=== PATIENT | male | born 1960 | race Caucasian/White ===

== ENCOUNTER 2019-01-17 15:49 | Inpatient (IN) | payer OTHER ==
[2019-01-17 16:54] LABS: #Eosinphils 0.4 thou/uL (0.0-0.7); #Lymphocytes 2.8 thou/uL (1.20-3.40); #Monocytes 1.3 thou/uL (0.11-0.59); #Neutrophils 7.6 thou/uL (1.40-6.50); %Basophils 0.4 % (0.0-1.0); %Eosinophils 3.2 % (0.0-10.0); %Lymphocytes 22.8 % (21.0-51.0); %Monocytes 10.8 % (0.0-10.0); %Neutrophils 62.8 % (42.0-75.0); Hemoglobin 13.1 g/dL (14.0-18.0); Mean Corpuscular HGB CONC 33.9 g/dL (32.0-36.0); Mean Corpuscular Hemoglobin 31.7 pg (27.0-31.0); Mean Corpuscular Volume 93.6 fL (78.0-98.0); Platelet Count 325 thou/uL (130-400); RBC Distribution Width 11.3 % (11.5-14.5); Red Blood Cell (RBC) Count 4.14 mill/uL (4.70-6.10); White Blood Cell (WBC) Count 12.1 thou/uL (4.8-10.8)
--- NOTE | 2019-01-17 17:15 | RAD ---
Exam: XR Foot Rt 3 View STANDARD HISTORY: Soreness on bottom of right foot. History of prior bone infection. COMPARISON: None FINDINGS: There is a linear metallic foreign body seen in the plantar subcutaneous soft tissues base of the rig ht great toe laterally with a curvilinear metallic foreign body also seen in the plantar subcutaneous soft tissues just medial to the level of the third metatarsal head. No acute fracture, dislocation, or other acute osseous abnormality is identified. A plantar calcaneal enthesophyte is identified. IMPRESSION: 1. Linear metallic foreign bodies in the subcutaneous soft tissues at the plantar aspect base of the great toe as well as plantar aspect of the forefoot at the level of the third and fourth metatarsal heads. 2. No acute osseous abnormality.
[2019-01-17 17:20] LABS: ALT (SGPT) 17 U/L (8-55); AST (SGOT) 26 U/L (5-34); Albumin 3.8 g/dL (3.5-5.0); Alkaline Phosphatase 80 U/L (40-110); Anion Gap 10 mmol/L (10-20); BUN (Urea Nitrogen) 8 mg/dL (8.4-25.7); Bilirubin, Total 0.6 mg/dL (0.2-1.2); Calc. Creatinine Clearance 0 mL/min (70-130); Calcium 9.1 mg/dL (7.8-10.44); Carbon Dioxide 30 mmol/L (22-29); Chloride 98 mmol/L (98-107); Estimated GFR-MDRD Greater than 90; Globulin 3.4 g/dL (2.4-3.5); Glucose 158 mg/dL (70-105); Potassium 4.1 mmol/L (3.5-5.1); Protein, Total 7.2 g/dL (6.0-8.3); Sodium 134 mmol/L (136-145)
[2019-01-17] MEDS ORDERED: Piperacillin/Tazobactam 4.5 GM VIAL ONE ×2 (17:55→17:57)
[2019-01-17] MEDS ORDERED: Vancomycin 1.5 GRAM/300 ML BAG 1.5 GM in Premix Bag 1 BAG IVPB ONE (18:15)
[2019-01-17] MEDS ORDERED: Acetaminophen 325 MG TAB PO PRN (19:26)
[2019-01-17] MEDS ORDERED: Dextrose 50% Abboject 50 ML SYRINGE SLOW IVP PRN (19:49)
[2019-01-17] MEDS ORDERED: HumaLOG 300 UNITS/3 ML VIAL SC PRN (19:49)
[2019-01-17] MEDS ORDERED: Dextrose 5% in Water 1,000 ML IV PRN (19:49)
--- NOTE | 2019-01-17 22:01 | HP ---
CHIEF COMPLAINT: Right foot ulcer. HISTORY OF PRESENT ILLNESS: This patient is a 58-year-old male, who says he has psych problems and takes psych medications. States that he at some point recently noticed that he was having some drainage on his sock on his right foot. He then noticed that there was large lesion of open area on the dorsum of the plantar surface of the right great toe. He subsequently noticed some erythema extending from the toe up the foot to the calf area. He says he cannot recall when he noticed any of this and essentially blames it on his psych medications. He says he only had one day of fever that was over a week ago, but none since he does not have significant pain associated with this area. He does not recall any specific injury or stepping on any foreign bodies. REVIEW OF SYSTEMS: All systems reviewed. All pertinent positives and negatives noted in history of present illness. PAST MEDICAL HISTORY: Had surgery on his left great toe 4 times, started with removal of a ganglion cyst, subsequently infections and complications. No other surgeries. He has hypertension, diabetes mellitus, and apparently bipolar disorder. He was admitted here previously in September of 2016, with suicidal ideations. He was homeless at that time and he was discharged to a psychiatric facility. His primary care provider is Zainab Pacheco at [facility]. FAMILY HISTORY: Has a brother with prostate cancer. Father of [place]. He is unsure of his mother's medical history. SOCIAL HISTORY: The patient smokes a pack of cigarettes per day. Denies alcohol. Previously said he did consume moderate amounts of beer. He denies drugs. He is single. He lives alone in a 5th wheel trailer. CURRENT MEDICATIONS: Still working on getting the complete list, but it appears to include: 1. Risperdal 3 mg at bedtime. 2. Metformin 500 b.i.d. 3. Glucotrol 5 b.i.d. 4. Klonopin 0.5 at bedtime. 5. Effexor XR 150 daily. 6. Tramadol 50 q.8 hours p.r.n. 7. Metoprolol 50 mg b.i.d. 8. Fenofibrate 160 daily. 9. Benztropine 5 mg p.o. at bedtime. Again, this is very preliminary and not yet confirmed, although it appears that these have all been medications he has previously filled but not recently. PHYSICAL EXAMINATION: VITAL SIGNS: Blood pressure 137/79, pulse 74, respirations 15, temperature is 98.4, O2 sats 98%. GENERAL APPEARANCE: Age-appropriate male, in no distress. Awake, alert, oriented, pleasant, and cooperative. HEENT: PERRL. He has no OP lesions. Appears to be edentulous. NECK: Supple and symmetric. HEART: Regular rate and rhythm without murmurs, gallops, or rubs. He does appear to have small incisional scar in the sternal notch area, which is old. LUNGS: Diminished, but clear bilaterally with no wheezes or rales. ABDOMEN: Soft, nontender, and nondistended. Positive bowel sounds. No masses. No organomegaly. EXTREMITIES: The left lower extremity great toe appears to be shortened. It is mildly erythematous. The right foot has significant erythema encompassing the right great toe with edema. There is a 2.5 cm area of denuded skin and ulceration extending to the base of the foot. There is erythema extending onto the foot up to the mid calf with some generalized edema on this area. It is modestly tender to palpation. PSYCH: Normal affect and behavior. NEURO: The patient appears to have fairly normal sensation in lower extremities and normal spontaneous movement of all extremities. Cranial nerves are intact. LABORATORY DATA: White count 12.1, hemoglobin 13.1, platelets 325. Sodium 134, potassium 4.1, chloride 98, CO2 is 30, BUN 8, creatinine 0.76, glucose 158, lactic acid 1.5, calcium 9.1. LFTs normal. Foot x-ray shows linear metallic foreign bodies in the subcutaneous soft tissue at the plantar aspect and base of the great toe, as well as plantar aspect of the forefoot at the level of the third and fourth metatarsal heads. There is no acute osseous abnormality. IMPRESSION AND PLAN: 1. Infected diabetic foot ulcer, right great toe with foreign body consistent with very small piece of small gauge wire. The patient has no known history exposure to this certainly concerning that this is not going to get better unless that area is explored and potentially the metallic piece removed. He will be admitted and started on IV antibiotics, and we will consult Podiatry. 2. Diabetes mellitus. Accu-Cheks sliding scale, which I resume his home medications once those can be fully elucidated. 3. History of bipolar disorder. We will continue with the risperidone at bedtime and benztropine at bedtime and try to be more definitive with his home medications by the morning. Anticipate we can get a med list from [facility]. 4. History of being on metoprolol, likely for hypertension which the patient reports. We will continue with that. Job ID: [id number]
[2019-01-17] MEDS: traMADol HCl 50 MG TAB PO PRN (22:03)
[2019-01-17] MEDS: risperiDONE 1 MG TAB PO SCH (22:03)
[2019-01-17] MEDS: Nicotine 14 MG PATCH TD SCH (22:04)
[2019-01-17 23:24] VITALS: BMI 35.7
[2019-01-18] MEDS: Piperacillin/Tazobactam 3.375 GM in Sodium Chloride 0.9% 100 ML IVPB SCH ×5 (00:04→23:47)
[2019-01-18 05:44] LABS: #Basophils 0.1 thou/uL (0.0-0.2); #Eosinphils 0.4 thou/uL (0.0-0.7); #Lymphocytes 2.3 thou/uL (1.20-3.40); #Monocytes 1.1 thou/uL (0.11-0.59); #Neutrophils 3.9 thou/uL (1.40-6.50); %Basophils 0.9 % (0.0-1.0); %Eosinophils 5.2 % (0.0-10.0); %Lymphocytes 29.6 % (21.0-51.0); %Neutrophils 50.3 % (42.0-75.0); Hemoglobin 12.9 g/dL (14.0-18.0); Mean Corpuscular HGB CONC 33.4 g/dL (32.0-36.0); Mean Corpuscular Hemoglobin 31.4 pg (27.0-31.0); Mean Corpuscular Volume 93.9 fL (78.0-98.0); Mean Platelet Volume 7.2 fL (7.4-10.4); Platelet Count 296 thou/uL (130-400); RBC Distribution Width 11.5 % (11.5-14.5); Red Blood Cell (RBC) Count 4.12 mill/uL (4.70-6.10); White Blood Cell (WBC) Count 7.7 thou/uL (4.8-10.8)
[2019-01-18 06:11] LABS: Anion Gap 9 mmol/L (10-20); BUN (Urea Nitrogen) 6 mg/dL (8.4-25.7); Calc. Creatinine Clearance 183 mL/min (70-130); Calcium 8.9 mg/dL (7.8-10.44); Carbon Dioxide 28 mmol/L (22-29); Chloride 106 mmol/L (98-107); Estimated GFR-MDRD Greater than 90; Glucose 123 mg/dL (70-105); Potassium 4.2 mmol/L (3.5-5.1); Sodium 139 mmol/L (136-145)
[2019-01-18] MEDS: traMADol HCl 50 MG TAB PO PRN (08:30)
[2019-01-18] MEDS: metFORMIN 500 MG TAB PO SCH ×2 (08:31→17:28)
[2019-01-18] MEDS: Venlafaxine HCl XR 150 MG CAP PO SCH (08:31)
[2019-01-18] MEDS: Metoprolol Tartrate 50 MG TAB PO SCH ×2 (08:31→20:45)
[2019-01-18] MEDS: clonazePAM 0.5 MG TAB PO SCH (08:31)
[2019-01-18] MEDS: glipiZIDE 5 MG TAB PO SCH ×2 (08:31→17:28)
[2019-01-18] MEDS ORDERED: FLU VACC QS2019-20(6MOS UP)/PF 60 MCG/0.5 ML SYRINGE IM ONE (09:00)
[2019-01-18] MEDS: risperiDONE 1 MG TAB PO SCH (20:45)
[2019-01-18] MEDS: Benztropine 1 MG TAB PO SCH (20:45)
[2019-01-18] MEDS: Nicotine 14 MG PATCH TD SCH (20:45)
--- NOTE | 2019-01-18 21:21 | PDOC.HOSPP ---
- Subjective Encounter Date: 01/18/19 Encounter Time: 07:15 Subjective: no pain in his toe ulcer site is amb in room - Objective Vital Signs & Weight: Vital Signs (12 hours) Temp Pulse Resp BP Pulse Ox 01/18/19 19:52 98.2 F 69 19 130/78 93 L 01/18/19 17:14 98.4 F 68 16 121/80 92 L 01/18/19 12:25 98.1 F 68 20 123/79 95 Weight Weight 242 lb Result Diagrams: 01/18/19 05:07 01/18/19 05:07 Additional Labs: Accuchecks 01/18/19 01/18/19 01/18/19 19:58 16:57 11:40 POC Glucose 139 H 130 H 125 H 01/18/19 01/17/19 04:54 21:16 POC Glucose 128 H 107 Hospitalist ROS - Medication Medications: Active Medications Generic Name Dose Route Start Last Admin Trade Name Freq PRN Reason Stop Dose Admin Benztropine Mesylate 0.5 mg 01/18/19 21:00 01/18/19 20:45 Cogentin PO 0.5 mg HS PATITO Administration Clonazepam 0.5 mg 01/18/19 09:00 01/18/19 08:31 Klonopin PO 0.5 mg DAILY PATITO Administration Glipizide 5 mg 01/18/19 07:30 01/18/19 17:28 Glucotrol PO 5 mg BID-AC PATITO Administration Piperacillin Sod/Tazobactam 100 mls @ 200 mls/hr 01/17/19 23:59 01/18/19 17: 28 Sod 3.375 gm/ Sodium Chloride IVPB 100 mls Q6HR PATITO Administration Metformin HCl 500 mg 01/18/19 08:00 01/18/19 17:28 Glucophage PO 500 mg BID-WM PATITO Administration Metoprolol Tartrate 50 mg 01/18/19 09:00 01/18/19 20:45 Lopressor PO 50 mg BID PATITO Administration Nicotine 14 mg 01/17/19 21:00 01/18/19 20:45 Nicoderm Patch TD Not Given Q24HR PATITO Risperidone 2 mg 01/17/19 21:00 01/18/19 20:45 Risperidone PO 2 mg HS PATITO Administration Tramadol HCl 50 mg 01/17/19 21:50 01/18/19 08:30 Ultram PO 50 mg Q8H PRN Administration Pain Venlafaxine HCl 150 mg 01/18/19 09:00 01/18/19 08:31 Effexor Xr PO 150 mg DAILY PATITO Administration - Exam General Appearance: awake alert Eye: PERRL, anicteric sclera ENT: no oropharyngeal lesions, dry oral mucosa Neck: supple, no JVD Heart: RRR, no murmur Respiratory: no wheezes, no rales Gastrointestinal: soft, non-tender, non-distended, normal bowel sounds Extremities - other findings: right gr toe ulcer on plantar aspect at MTP joint , edema of foot/leg Neurological: cranial nerve grossly intact, no focal deficits Psychiatric: normal affect, A&O x 3 Hosp A/P (1) Cellulitis of right leg Code(s): L03.115 - CELLULITIS OF RIGHT LOWER LIMB Status: Acute (2) DM type 2 (diabetes mellitus, type 2) Status: Chronic Qualifiers: Diabetes mellitus salvage determiner insulin use: without salvage determiner use (3) Ulcer of right great toe due to diabetes mellitus Code(s): E11.621 - TYPE 2 DIABETES MELLITUS WITH FOOT ULCER; L97.519 - NON-PRS CHRONIC ULCER OTH PRT RIGHT FOOT W UNSP SEVERITY Status: Acute (4) Obesity (BMI 30-39.9) Code(s): E66.9 - OBESITY, UNSPECIFIED Status: Chronic (5) Anxiety and depression Code(s): F41.8 - OTHER SPECIFIED ANXIETY DISORDERS Status: Chronic (6) HTN (hypertension) Code(s): I10 - ESSENTIAL (PRIMARY) HYPERTENSION Status: Chronic Qualifiers: Hypertension type: essential hypertension Qualified Code(s): I10 - Essential (primary) hypertension - Plan is on vanc and zosyn, for debridement in am by Podiatry continue metformin, glipizide, lopressor, cogentin, klonopin and risperdal hemostable to amb as tolerated, to keep right LE elevated to reduce edema
--- NOTE | 2019-01-18 23:57 | HP ---
REASON FOR CONSULTATION: Right foot ulceration. HISTORY OF PRESENT ILLNESS: A 58-year-old male who was admitted to the hospital with cellulitis and wound to the right foot. He states that he thinks that the wound has been there for about a month to month and a half. He says he noticed pain about a month ago, went to his primary care doctor just a few days ago and he said it was the worst it had been at times and he had increased redness and swelling and pain to the right great toe. He was admitted to the hospital for this infection. He has been admitted to the hospital, has been getting IV antibiotics. He says the wound has improved, but on admission, there was x-rays taken, which showed a small metallic object in the in the great toe, which does relate to the site of the ulceration. Patient denies any nausea, vomiting, fevers, or chills at this time. REVIEW OF SYSTEMS: All systems reviewed and all were negative except for what was noted as positive in the history of present illness. PAST MEDICAL HISTORY: 1. Hypertension. 2. Diabetes. 3. Bipolar disorder. PAST SURGICAL HISTORY: Includes 4 surgeries on his left great toe, which included a removal of a ganglion cyst and then subsequent infection and complications. MEDICATIONS: Allergies. FAMILY HISTORY: Reviewed SOCIAL HISTORY: Reviewed from the admission H and P and deemed accurate with review with the patient. PHYSICAL EXAMINATION: EXTREMITIES: For the lower extremity exam, vascular, dorsalis pedis, posterior tibial pulses palpable to the right lower extremity. Capillary refill time is immediate to the distal aspect of the toes. There is diffuse nonpitting edema to the right lower extremity. NEUROLOGIC: Light touch and protective threshold is diminished to the right lower extremity. DERMATOLOGICAL: There is an ulceration full thickness to the plantar sulcus of the right hallux. This measures 1.5 cm long, 3 cm in width, which continues onto the lateral aspect of the toe. No tunneling or probing to bone. The right hallux is erythematous just proximally to the 1st metatarsophalangeal joint. No fluctuant areas noted within the surrounding soft tissues to indicate abscess. IMAGING: Radiographic exam, x-rays were reviewed which do show a small metallic object just plantar and lateral to the proximal phalanx of the right hallux. This is in close proximity to the overlying soft tissue deficit. No cortical erosions or irregularity to indicate osteomyelitis. ASSESSMENT: 1. Non-pressure chronic ulceration to the right great toe with fat layer exposed. 2. Retained foreign body. 3. Cellulitis. 4. Diabetes with peripheral neuropathy. PLAN: 1. Discussed the patient's condition and treatment options. The foreign body may actually be an incidental finding as I do not see any wound tracts, but because of the close proximity, I am recommending that we remove that small foreign body from the area to help promote the healing of the area. 2. He is to continue with his IV antibiotics and once he becomes stable after surgery, can be discharged on oral antibiotics. 3. I have him scheduled to go to the operating room tomorrow morning. I will make him n.p.o. after midnight and he will be consented for removal of foreign body to the right great toe. Thank you for medical management by the in-house team and for the consultation. Job ID: [id number]
[2019-01-19] MEDS: Metoprolol Tartrate 50 MG TAB PO SCH ×2 (05:16→21:06)
[2019-01-19] MEDS: clonazePAM 0.5 MG TAB PO SCH ×2 (05:16→18:32)
[2019-01-19] MEDS: Piperacillin/Tazobactam 3.375 GM in Sodium Chloride 0.9% 100 ML IVPB SCH ×3 (05:16→17:14)
[2019-01-19] MEDS ORDERED: Fentanyl 100 MCG/2 ML VIAL ONE (06:43)
[2019-01-19] MEDS ORDERED: Neomycin-Polymyxin 1 ML AMP ONE (06:45)
[2019-01-19] MEDS ORDERED: Bupivacaine PF 0.5% 30 ML VIAL ONE (06:45)
[2019-01-19] MEDS: metFORMIN 500 MG TAB PO SCH ×2 (09:18→17:07)
[2019-01-19] MEDS: Venlafaxine HCl XR 150 MG CAP PO SCH (09:18)
[2019-01-19] MEDS: glipiZIDE 5 MG TAB PO SCH ×2 (09:18→17:07)
[2019-01-19] MEDS ORDERED: Glycopyrrolate 0.2 MG/ML 5 ML SYRINGE ONE (09:58)
[2019-01-19] MEDS ORDERED: Ondansetron PF 4 MG/2 ML Vial ONE (09:58)
[2019-01-19] MEDS ORDERED: PROPOFOL 200 MG/20 ML VIAL ONE (09:58)
[2019-01-19] MEDS ORDERED: ePHEDrine/0.9% NaCl/PF SYRINGE 50 mg/10 ml ONE (09:58)
[2019-01-19] MEDS ORDERED: Lidocaine 1% PF 5 ML VIAL ONE (09:58)
--- NOTE | 2019-01-19 10:06 | RAD ---
RIGHT FOOT 3 VIEWS: INDICATION: Foreign body removal. COMPARISON: Prior exam dated 01/17/2019. IMPRESSION: The small foreign body seen just lateral to the great toe proximal phalanx is no longer demonstrated. The small foreign body seen within the plantar soft tissues subjacent to the forefoot is not defini tely seen. Fluoroscopic time was 9.6 seconds. Total exposure is 0.21 mGy. IMPRESSION: Definite interval removal of foreign body seen adjacent to the great toe proximal phalanx. The small radiopaque foreign body on the plantar aspect of the forefoot is difficult to see if it was removed. Repeat standard radiograph recommended. POS: [facility]
[2019-01-19] MEDS: traMADol HCl 50 MG TAB PO PRN ×2 (11:56→21:10)
--- NOTE | 2019-01-19 13:17 | PDOC.HOSPP ---
- Subjective Encounter Date: 01/19/19 Encounter Time: 09:15 Subjective: feels better, has not ambulated yet no pain in his foot - Objective Vital Signs & Weight: Vital Signs (12 hours) Temp Pulse Resp BP Pulse Ox 01/19/19 12:17 98.0 F 56 L 20 126/79 91 L 01/19/19 05:00 98.2 F 69 18 127/78 95 Weight Weight 242 lb I&O: 01/18/19 01/19/19 01/20/19 06:59 06:59 06:59 Intake Total 920 Balance 920 Result Diagrams: 01/18/19 05:07 01/18/19 05:07 Additional Labs: Accuchecks 01/19/19 01/19/19 01/18/19 11:45 05:05 19:58 POC Glucose 152 H 130 H 139 H 01/18/19 01/18/19 16:57 11:40 POC Glucose 130 H 125 H Hospitalist ROS - Medication Medications: Active Medications Generic Name Dose Route Start Last Admin Trade Name Darionq PRN Reason Stop Dose Admin Benztropine Mesylate 0.5 mg 01/18/19 21:00 01/18/19 20:45 Cogentin PO 0.5 mg HS PATITO Administration Clonazepam 0.5 mg 01/18/19 09:00 01/19/19 05:16 Klonopin PO 0.5 mg DAILY PATITO Administration Glipizide 5 mg 01/18/19 07:30 01/19/19 09:18 Glucotrol PO 5 mg BID-AC PATTIO Administration Piperacillin Sod/Tazobactam 100 mls @ 200 mls/hr 01/17/19 23:59 01/19/19 11: 55 Sod 3.375 gm/ Sodium Chloride IVPB 100 mls Q6HR PATITO Administration Metformin HCl 500 mg 01/18/19 08:00 01/19/19 09:18 Glucophage PO 500 mg BID-WM PATITO Administration Metoprolol Tartrate 50 mg 01/18/19 09:00 01/19/19 05:16 Lopressor PO 50 mg BID PATITO Administration Nicotine 14 mg 01/17/19 21:00 01/18/19 20:45 Nicoderm Patch TD Not Given Q24HR PATITO Risperidone 2 mg 01/17/19 21:00 01/18/19 20:45 Risperidone PO 2 mg HS PATITO Administration Tramadol HCl 50 mg 01/17/19 21:50 01/19/19 11:56 Ultram PO 50 mg Q8H PRN Administration Pain Venlafaxine HCl 150 mg 01/18/19 09:00 01/19/19 09:18 Effexor Xr PO 150 mg DAILY PATITO Administration - Exam General Appearance: NAD, awake alert Eye: PERRL, anicteric sclera ENT: no oropharyngeal lesions, moist mucosa Neck: supple, no JVD Heart: RRR, no murmur Respiratory: no wheezes, no rales Gastrointestinal: soft, non-tender, non-distended, normal bowel sounds Extremities - other findings: right forefoot in dressing Neurological: cranial nerve grossly intact, no focal deficits Psychiatric: normal affect, A&O x 3 Hosp A/P (1) Cellulitis of right leg Code(s): L03.115 - CELLULITIS OF RIGHT LOWER LIMB Status: Acute (2) DM type 2 (diabetes mellitus, type 2) Status: Chronic Qualifiers: Diabetes mellitus assisted insulin use: without intermediate designer use (3) Ulcer of right great toe due to diabetes mellitus Code(s): E11.621 - TYPE 2 DIABETES MELLITUS WITH FOOT ULCER; L97.519 - NON-PRS CHRONIC ULCER OTH PRT RIGHT FOOT W UNSP SEVERITY Status: Acute (4) Obesity (BMI 30-39.9) Code(s): E66.9 - OBESITY, UNSPECIFIED Status: Chronic (5) Anxiety and depression Code(s): F41.8 - OTHER SPECIFIED ANXIETY DISORDERS Status: Chronic (6) HTN (hypertension) Code(s): I10 - ESSENTIAL (PRIMARY) HYPERTENSION Status: Chronic Qualifiers: Hypertension type: essential hypertension Qualified Code(s): I10 - Essential (primary) hypertension - Plan is on vanc and zosyn, had debridement and removal of FB by 01/19/2019 continue metformin, glipizide, lopressor, cogentin, klonopin and risperdal hemostable to amb as tolerated, to keep right LE elevated to reduce edema
[2019-01-19] MEDS: Nicotine 14 MG PATCH TD SCH (19:56)
--- NOTE | 2019-01-19 20:50 | OP ---
DATE OF PROCEDURE: 01/19/2019 PREOPERATIVE DIAGNOSIS: Retained foreign body, right foot. POSTOPERATIVE DIAGNOSIS: Retained foreign body, right foot. PROCEDURE PERFORMED: Incision and removal of deep foreign body, right foot. ANESTHESIA: Local with monitored anesthetic care. HEMOSTASIS: Pneumatic tourniquet around the right ankle at 250 mmHg. ESTIMATED BLOOD LOSS: None. MATERIALS: 4-0 Vicryl. INJECTABLES: 10 mL of 0.5% Marcaine plain preoperatively. COMPLICATIONS: None. DESCRIPTION OF PROCEDURE: The patient was brought to the operative suite, placed supine on the operative table. Time-out was performed, identifying correct patient, procedure, and operative site. Well-padded tourniquet was placed about the right ankle. Foot was prepped and draped in an aseptic manner. Attention was directed to the plantar aspect of the right hallux where his large plantar ulceration remained. Utilizing fluoroscopy, we triangulated the approximate location of the foreign body. A 1 cm incision was made through the ulcerative tissue. Blunt dissection through the subcutaneous tissue identifying the foreign object. This was removed in total. Examination of it shows it to be approximately 5 mm in length. It is black and corroded as if it had been in place for some time. This was sent for pathological evaluation. Fluoroscopy was then used to confirm complete removal of the object. Wound was irrigated with approximately 40 mL normal saline. A small wound tract was reapproximated with 4-0 Vicryl. Bandage was applied including Xeroform gauze, roll gauze, and Clifford bandage. Tourniquet was released noting immediate hyperemia to the distal aspect of the toe. The patient tolerated the procedure and anesthesia well and was transported out of the operative suite with vital signs stable, neurovascular status intact to the right lower extremity. He will be kept for a short period of monitoring and then transferred back to his room. Job ID: [id number]
[2019-01-19] MEDS: risperiDONE 1 MG TAB PO SCH (21:06)
[2019-01-19] MEDS: Benztropine 1 MG TAB PO SCH (21:06)
[2019-01-20] MEDS: Piperacillin/Tazobactam 3.375 GM in Sodium Chloride 0.9% 100 ML IVPB SCH ×5 (00:39→23:50)
[2019-01-20] MEDS: traMADol HCl 50 MG TAB PO PRN ×2 (08:42→16:31)
[2019-01-20] MEDS: metFORMIN 500 MG TAB PO SCH ×2 (08:42→16:29)
[2019-01-20] MEDS: glipiZIDE 5 MG TAB PO SCH ×2 (08:42→16:28)
[2019-01-20] MEDS: Venlafaxine HCl XR 150 MG CAP PO SCH (08:43)
[2019-01-20] MEDS: Metoprolol Tartrate 50 MG TAB PO SCH ×2 (08:43→20:51)
[2019-01-20] MEDS: clonazePAM 0.5 MG TAB PO SCH ×4 (08:43→20:51)
--- NOTE | 2019-01-20 12:05 | PDOC.HOSPP ---
- Subjective Encounter Date: 01/20/19 Encounter Time: 09:40 Subjective: has pain post dressing changes this am is amb in hallway - Objective Vital Signs & Weight: Vital Signs (12 hours) Temp Pulse Resp BP Pulse Ox 01/20/19 07:41 98.5 F 60 20 138/87 95 01/20/19 04:21 98.1 F 64 20 130/78 96 01/20/19 00:06 98.0 F 64 19 135/84 96 Weight Weight 242 lb I&O: 01/19/19 01/20/19 01/21/19 06:59 06:59 06:59 Intake Total 920 680 Balance 920 680 Result Diagrams: 01/18/19 05:07 01/18/19 05:07 Additional Labs: Accuchecks 01/20/19 01/20/19 01/19/19 11:39 04:25 19:38 POC Glucose 115 H 120 H 141 H 01/19/19 16:19 POC Glucose 99 Hospitalist ROS - Medication Medications: Active Medications Generic Name Dose Route Start Last Admin Trade Name Freq PRN Reason Stop Dose Admin Benztropine Mesylate 0.5 mg 01/18/19 21:00 01/19/19 21:06 Cogentin PO 0.5 mg HS PATITO Administration Clonazepam 0.5 mg 01/19/19 21:00 01/20/19 08:43 Klonopin PO 0.5 mg QID PATITO Administration Glipizide 5 mg 01/18/19 07:30 01/20/19 08:43 Glucotrol PO 5 mg BID-AC PATITO Administration Piperacillin Sod/Tazobactam 100 mls @ 200 mls/hr 01/17/19 23:59 01/20/19 11: 55 Sod 3.375 gm/ Sodium Chloride IVPB 100 mls Q6HR PATITO Administration Metformin HCl 500 mg 01/18/19 08:00 01/20/19 08:42 Glucophage PO 500 mg BID-WM PATITO Administration Metoprolol Tartrate 50 mg 01/18/19 09:00 01/20/19 08:43 Lopressor PO 50 mg BID PATITO Administration Nicotine 14 mg 01/17/19 21:00 01/19/19 19:56 Nicoderm Patch TD Not Given Q24HR PATITO Risperidone 2 mg 01/17/19 21:00 01/19/19 21:06 Risperidone PO 2 mg HS PATITO Administration Tramadol HCl 50 mg 01/17/19 21:50 01/20/19 08:42 Ultram PO 50 mg Q8H PRN Administration Pain Venlafaxine HCl 150 mg 01/18/19 09:00 01/20/19 08:43 Effexor Xr PO 150 mg DAILY PATITO Administration - Exam General Appearance: NAD, awake alert Eye: PERRL, anicteric sclera ENT: no oropharyngeal lesions, moist mucosa Neck: supple, no JVD Heart: RRR, no murmur Respiratory: no wheezes, no rales Gastrointestinal: soft, non-tender, non-distended, normal bowel sounds Extremities - other findings: right leg edema+ Neurological: cranial nerve grossly intact, no focal deficits Psychiatric: normal affect, A&O x 3 Hosp A/P (1) Cellulitis of right leg Code(s): L03.115 - CELLULITIS OF RIGHT LOWER LIMB Status: Acute (2) DM type 2 (diabetes mellitus, type 2) Status: Chronic Qualifiers: Diabetes mellitus nursing home insulin use: without nursing home use (3) Ulcer of right great toe due to diabetes mellitus Code(s): E11.621 - TYPE 2 DIABETES MELLITUS WITH FOOT ULCER; L97.519 - NON-PRS CHRONIC ULCER OTH PRT RIGHT FOOT W UNSP SEVERITY Status: Acute (4) Obesity (BMI 30-39.9) Code(s): E66.9 - OBESITY, UNSPECIFIED Status: Chronic (5) Anxiety and depression Code(s): F41.8 - OTHER SPECIFIED ANXIETY DISORDERS Status: Chronic (6) HTN (hypertension) Code(s): I10 - ESSENTIAL (PRIMARY) HYPERTENSION Status: Chronic Qualifiers: Hypertension type: essential hypertension Qualified Code(s): I10 - Essential (primary) hypertension - Plan is on vanc and zosyn, had debridement and removal of FB by 01/19/2019 continue metformin, glipizide, lopressor, cogentin, klonopin and risperdal hemostable to amb as tolerated, to keep right LE elevated to reduce edema will need 1-2 days of iv antibiotics prior to dc
[2019-01-20] MEDS: Nicotine 14 MG PATCH TD SCH (20:46)
[2019-01-20] MEDS: risperiDONE 1 MG TAB PO SCH (20:51)
[2019-01-20] MEDS: Benztropine 1 MG TAB PO SCH (20:51)
[2019-01-21] MEDS: Piperacillin/Tazobactam 3.375 GM in Sodium Chloride 0.9% 100 ML IVPB SCH ×3 (05:50→16:56)
[2019-01-21] MEDS: Metoprolol Tartrate 50 MG TAB PO SCH ×2 (08:26→21:26)
[2019-01-21] MEDS: Venlafaxine HCl XR 150 MG CAP PO SCH (08:26)
[2019-01-21] MEDS: metFORMIN 500 MG TAB PO SCH ×2 (08:26→16:53)
[2019-01-21] MEDS: clonazePAM 0.5 MG TAB PO SCH ×4 (08:26→21:26)
[2019-01-21] MEDS: glipiZIDE 5 MG TAB PO SCH ×2 (08:26→16:53)
[2019-01-21] MEDS: traMADol HCl 50 MG TAB PO PRN (09:22)
--- NOTE | 2019-01-21 11:06 | PRG ---
DATE OF SERVICE: 01/21/2019 SUBJECTIVE: The patient is 2 days status post removal of foreign body from the right great toe with chronic ulceration to the right great toe and cellulitis. The patient states he has been having a little bit of pain and discomfort on the dorsal aspect of the foot and ankle, but the toes feels fine. Did not mention nausea, vomiting, fevers, or chills at this time. No calf tenderness. OBJECTIVE: VITAL SIGNS: The patient is afebrile. Vital signs are stable. EXTREMITIES: He has a dressing to the right foot, which is clean, dry, and intact. This was changed this morning. Evaluation of the toe shows decrease in erythema. There is still some edema to the toe wound, 100% granular wound base. No purulent drainage noted. LABORATORY DATA: The patient's white count was last done on the and was normalized to 7.7, down from 12.1 on the . ASSESSMENT: 1. Nonpressure chronic ulceration to the right lower extremity with associated cellulitis, which is resolving. 2. Retained foreign body, status post removal of this foreign body. PLAN: 1. Continue with wound care for dressing changes. 2. Continue with IV antibiotics at this time. I feel his cellulitis is resolving and he would be okay for discharge on oral antibiotics. No further surgical intervention warranted at this time. 3. I would recommend him with consultation for followup with wound care as an outpatient once discharged. Job ID: [id number]
--- NOTE | 2019-01-21 13:57 | PDOC.HOSPP ---
- Subjective Encounter Date: 01/21/19 Encounter Time: 08:00 Subjective: is sitting in chair, feels better pain is better this am, still has edema - Objective Vital Signs & Weight: Vital Signs (12 hours) Temp Pulse Resp BP Pulse Ox 01/21/19 08:00 97 01/21/19 07:00 97.8 F 66 20 150/81 H 97 Weight Admit Weight 242 lb Weight 242 lb I&O: 01/20/19 01/21/19 01/22/19 06:59 06:59 06:59 Intake Total 680 920 Balance 680 920 Result Diagrams: 01/18/19 05:07 01/18/19 05:07 Additional Labs: Accuchecks 01/21/19 01/21/19 01/20/19 11:55 05:00 20:11 POC Glucose 71 98 107 01/20/19 16:35 POC Glucose 86 Hospitalist ROS - Medication Medications: Active Medications Generic Name Dose Route Start Last Admin Trade Name Freq PRN Reason Stop Dose Admin Benztropine Mesylate 0.5 mg 01/18/19 21:00 01/20/19 20:51 Cogentin PO 0.5 mg HS PATITO Administration Clonazepam 0.5 mg 01/19/19 21:00 01/21/19 12:08 Klonopin PO 0.5 mg QID PATITO Administration Glipizide 5 mg 01/18/19 07:30 01/21/19 08:26 Glucotrol PO 5 mg BID-AC PATITO Administration Piperacillin Sod/Tazobactam 100 mls @ 200 mls/hr 01/17/19 23:59 01/21/19 12: 07 Sod 3.375 gm/ Sodium Chloride IVPB 100 mls Q6HR PATITO Administration Metformin HCl 500 mg 01/18/19 08:00 01/21/19 08:26 Glucophage PO 500 mg BID-WM PATITO Administration Metoprolol Tartrate 50 mg 01/18/19 09:00 01/21/19 08:26 Lopressor PO 50 mg BID PATITO Administration Nicotine 14 mg 01/17/19 21:00 01/20/19 20:46 Nicoderm Patch TD Not Given Q24HR PATITO Risperidone 2 mg 01/17/19 21:00 01/20/19 20:51 Risperidone PO 2 mg HS PATITO Administration Tramadol HCl 50 mg 01/17/19 21:50 01/21/19 09:22 Ultram PO 50 mg Q8H PRN Administration Pain Venlafaxine HCl 150 mg 01/18/19 09:00 01/21/19 08:26 Effexor Xr PO 150 mg DAILY PATITO Administration - Exam General Appearance: awake alert Eye: PERRL, anicteric sclera ENT: no oropharyngeal lesions, moist mucosa Neck: supple, no JVD Heart: RRR, no murmur Respiratory: no wheezes, no rales Gastrointestinal: soft, non-tender, non-distended, normal bowel sounds Extremities: 1+ LE edema Extremities - other findings: right forefoot in dressing Neurological: cranial nerve grossly intact, no focal deficits Psychiatric: normal affect, A&O x 3 Hosp A/P (1) Cellulitis of right leg Code(s): L03.115 - CELLULITIS OF RIGHT LOWER LIMB Status: Acute (2) DM type 2 (diabetes mellitus, type 2) Status: Chronic Qualifiers: Diabetes mellitus jail insulin use: without 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 supervisor use (3) Ulcer of right great toe due to diabetes mellitus Code(s): E11.621 - TYPE 2 DIABETES MELLITUS WITH FOOT ULCER; L97.519 - NON-PRS CHRONIC ULCER OTH PRT RIGHT FOOT W UNSP SEVERITY Status: Acute (4) Obesity (BMI 30-39.9) Code(s): E66.9 - OBESITY, UNSPECIFIED Status: Chronic (5) Anxiety and depression Code(s): F41.8 - OTHER SPECIFIED ANXIETY DISORDERS Status: Chronic (6) HTN (hypertension) Code(s): I10 - ESSENTIAL (PRIMARY) HYPERTENSION Status: Chronic Qualifiers: Hypertension type: essential hypertension Qualified Code(s): I10 - Essential (primary) hypertension - Plan is on vanc and zosyn, had debridement and removal of FB by 01/19/2019 continue metformin, glipizide, lopressor, cogentin, klonopin and risperdal hemostable to amb as tolerated, to keep right LE elevated to reduce edema dc plan in 26hrs, will need outpt wound care set up
[2019-01-21] MEDS: Benztropine 1 MG TAB PO SCH (21:25)
[2019-01-21] MEDS: risperiDONE 1 MG TAB PO SCH (21:26)
[2019-01-21] MEDS: Nicotine 14 MG PATCH TD SCH (21:27)
[2019-01-22] MEDS: Piperacillin/Tazobactam 3.375 GM in Sodium Chloride 0.9% 100 ML IVPB SCH ×4 (00:41→17:10)
[2019-01-22] MEDS: Metoprolol Tartrate 50 MG TAB PO SCH ×2 (09:08→20:28)
[2019-01-22] MEDS: glipiZIDE 5 MG TAB PO SCH ×2 (09:08→17:11)
[2019-01-22] MEDS: clonazePAM 0.5 MG TAB PO SCH ×4 (09:08→20:27)
[2019-01-22] MEDS: metFORMIN 500 MG TAB PO SCH ×2 (09:09→17:11)
[2019-01-22] MEDS: traMADol HCl 50 MG TAB PO PRN (09:09)
[2019-01-22] MEDS: Venlafaxine HCl XR 150 MG CAP PO SCH (09:10)
[2019-01-22 09:47] LABS: #Eosinphils 0.3 thou/uL (0.0-0.7); #Lymphocytes 2.3 thou/uL (1.20-3.40); #Monocytes 0.4 thou/uL (0.11-0.59); #Neutrophils 4.5 thou/uL (1.40-6.50); %Basophils 0.4 % (0.0-1.0); %Eosinophils 3.4 % (0.0-10.0); %Lymphocytes 30.9 % (21.0-51.0); %Monocytes 5.5 % (0.0-10.0); %Neutrophils 59.8 % (42.0-75.0); Mean Corpuscular HGB CONC 33.7 g/dL (32.0-36.0); Mean Corpuscular Hemoglobin 31.7 pg (27.0-31.0); Mean Corpuscular Volume 94.1 fL (78.0-98.0); Mean Platelet Volume 7.8 fL (7.4-10.4); Platelet Count 276 thou/uL (130-400); RBC Distribution Width 11.1 % (11.5-14.5); Red Blood Cell (RBC) Count 4.42 mill/uL (4.70-6.10); White Blood Cell (WBC) Count 7.5 thou/uL (4.8-10.8)
[2019-01-22 10:05] LABS: Anion Gap 12 mmol/L (10-20); BUN (Urea Nitrogen) 10 mg/dL (8.4-25.7); Calc. Creatinine Clearance 144 mL/min (70-130); Calcium 9.2 mg/dL (7.8-10.44); Carbon Dioxide 27 mmol/L (22-29); Chloride 106 mmol/L (98-107); Estimated GFR-MDRD 89; Glucose 175 mg/dL (70-105); Potassium 3.9 mmol/L (3.5-5.1); Sodium 141 mmol/L (136-145)
--- NOTE | 2019-01-22 14:07 | PDOC.HOSPP ---
- Subjective Encounter Date: 01/22/19 Encounter Time: 10:00 Subjective: Pt seen for followup re: diabetic foot infection. Feels well, no complaints. - Objective Vital Signs & Weight: Vital Signs (12 hours) Temp Pulse Resp BP Pulse Ox 01/22/19 08:00 96 01/22/19 07:00 98 F 70 18 174/95 H 96 Weight Admit Weight 242 lb Weight 242 lb I&O: 01/21/19 01/22/19 01/23/19 06:59 06:59 06:59 Intake Total 920 Balance 920 Result Diagrams: 01/22/19 09:06 01/22/19 09:06 Additional Labs: Accuchecks 01/22/19 01/22/19 01/22/19 11:47 04:38 00:41 POC Glucose 66 L 104 101 01/21/19 16:30 POC Glucose 97 Labs and MARs reviewed by me. Hospitalist ROS - Review of Systems Cardiovascular: denies: chest pain, palpitations, orthopnea, paroxysmal noc. dyspnea, edema, light headedness Gastrointestinal: denies: nausea, vomiting, abdominal pain, diarrhea, constipation, melena, hematochezia - Medication Medications: Active Medications Generic Name Dose Route Start Last Admin Trade Name Freq PRN Reason Stop Dose Admin Benztropine Mesylate 0.5 mg 01/18/19 21:00 01/21/19 21:25 Cogentin PO 0.5 mg HS PATITO Administration Clonazepam 0.5 mg 01/19/19 21:00 01/22/19 12:05 Klonopin PO 0.5 mg QID PATITO Administration Glipizide 5 mg 01/18/19 07:30 01/22/19 09:08 Glucotrol PO 5 mg BID-AC PATITO Administration Piperacillin Sod/Tazobactam 100 mls @ 200 mls/hr 01/17/19 23:59 01/22/19 12: 05 Sod 3.375 gm/ Sodium Chloride IVPB 100 mls Q6HR PATITO Administration Metformin HCl 500 mg 01/18/19 08:00 01/22/19 09:09 Glucophage PO 500 mg BID-WM PATITO Administration Metoprolol Tartrate 50 mg 01/18/19 09:00 01/22/19 09:08 Lopressor PO 50 mg BID PATITO Administration Nicotine 14 mg 01/17/19 21:00 01/21/19 21:27 Nicoderm Patch TD Not Given Q24HR PATITO Risperidone 2 mg 01/17/19 21:00 01/21/19 21:26 Risperidone PO 2 mg HS PATITO Administration Tramadol HCl 50 mg 01/17/19 21:50 01/22/19 09:09 Ultram PO 50 mg Q8H PRN Administration Pain Venlafaxine HCl 150 mg 01/18/19 09:00 01/22/19 09:10 Effexor Xr PO 150 mg DAILY PATITO Administration - Exam General Appearance: NAD Eye: anicteric sclera ENT: moist mucosa Neck: supple Heart: RRR Respiratory: CTAB, no rales Gastrointestinal: soft, non-tender Extremities: no clubbing Psychiatric: normal affect, normal behavior Hosp A/P (1) Ulcer of right foot due to type 2 diabetes mellitus Code(s): E11.621 - TYPE 2 DIABETES MELLITUS WITH FOOT ULCER; L97.519 - NON-PRS CHRONIC ULCER OTH PRT RIGHT FOOT W UNSP SEVERITY Status: Acute (2) DM type 2 (diabetes mellitus, type 2) Status: Chronic Qualifiers: Diabetes mellitus residential insulin use: without residential use (3) Obesity (BMI 30-39.9) Code(s): E66.9 - OBESITY, UNSPECIFIED Status: Chronic (4) Anxiety and depression Code(s): F41.8 - OTHER SPECIFIED ANXIETY DISORDERS Status: Chronic (5) HTN (hypertension) Code(s): I10 - ESSENTIAL (PRIMARY) HYPERTENSION Status: Chronic Qualifiers: Hypertension type: essential hypertension Qualified Code(s): I10 - Essential (primary) hypertension - Plan continue antibiotics, out of bed/ambulate Pt on Zosyn and vancomycin. Good blood sugar control. s/p debridement and foreign body removal.
[2019-01-22] MEDS: risperiDONE 1 MG TAB PO SCH (20:27)
[2019-01-22] MEDS: Benztropine 1 MG TAB PO SCH (20:27)
[2019-01-22] MEDS: Nicotine 14 MG PATCH TD SCH (20:28)
[2019-01-23] MEDS: Piperacillin/Tazobactam 3.375 GM in Sodium Chloride 0.9% 100 ML IVPB SCH ×5 (00:45→23:21)
[2019-01-23 05:47] LABS: #Basophils 0.1 thou/uL (0.0-0.2); #Eosinphils 0.4 thou/uL (0.0-0.7); #Lymphocytes 2.6 thou/uL (1.20-3.40); #Monocytes 0.8 thou/uL (0.11-0.59); #Neutrophils 4.1 thou/uL (1.40-6.50); %Basophils 0.8 % (0.0-1.0); %Lymphocytes 32.7 % (21.0-51.0); %Monocytes 9.8 % (0.0-10.0); %Neutrophils 51.7 % (42.0-75.0); Hemoglobin 12.9 g/dL (14.0-18.0); Mean Corpuscular HGB CONC 34.4 g/dL (32.0-36.0); Mean Corpuscular Hemoglobin 31.9 pg (27.0-31.0); Mean Corpuscular Volume 92.7 fL (78.0-98.0); Mean Platelet Volume 7.8 fL (7.4-10.4); Platelet Count 250 thou/uL (130-400); RBC Distribution Width 11.3 % (11.5-14.5); Red Blood Cell (RBC) Count 4.05 mill/uL (4.70-6.10); White Blood Cell (WBC) Count 7.8 thou/uL (4.8-10.8)
[2019-01-23 06:05] LABS: Anion Gap 9 mmol/L (10-20); BUN (Urea Nitrogen) 8 mg/dL (8.4-25.7); Calc. Creatinine Clearance 166 mL/min (70-130); Calcium 8.7 mg/dL (7.8-10.44); Carbon Dioxide 27 mmol/L (22-29); Chloride 108 mmol/L (98-107); Estimated GFR-MDRD Greater than 90; Glucose 117 mg/dL (70-105); Sodium 140 mmol/L (136-145)
[2019-01-23] MEDS: metFORMIN 500 MG TAB PO SCH ×2 (07:47→16:55)
[2019-01-23] MEDS: clonazePAM 0.5 MG TAB PO SCH ×4 (07:47→20:10)
[2019-01-23] MEDS: Venlafaxine HCl XR 150 MG CAP PO SCH (07:47)
[2019-01-23] MEDS: glipiZIDE 5 MG TAB PO SCH ×2 (07:47→16:55)
[2019-01-23] MEDS: Metoprolol Tartrate 50 MG TAB PO SCH ×2 (07:47→20:10)
[2019-01-23] MEDS: traMADol HCl 50 MG TAB PO PRN (07:50)
--- NOTE | 2019-01-23 13:14 | PDOC.HOSPP ---
- Subjective Encounter Date: 01/23/19 Encounter Time: 09:00 Subjective: Pt seen for followup re: diabetic foot infection. States he feels well. - Objective Vital Signs & Weight: Vital Signs (12 hours) Temp Pulse Resp BP Pulse Ox 01/23/19 08:00 96 01/23/19 07:45 98.3 F 62 14 149/79 H 96 01/23/19 04:48 0 F L Weight Admit Weight 242 lb Weight 242 lb Result Diagrams: 01/23/19 05:16 01/23/19 05:16 Additional Labs: Accuchecks 01/23/19 01/23/19 01/22/19 12:04 04:07 22:14 POC Glucose 69 L 123 H 133 H 01/22/19 15:41 POC Glucose 102 Labs and MARs reviewed by mo Hospitalist ROS - Review of Systems Gastrointestinal: denies: nausea, vomiting, abdominal pain, diarrhea, constipation, melena, hematochezia Genitourinary: denies: dysuria, frequency, incontinence, hematuria, retention - Medication Medications: Active Medications Generic Name Dose Route Start Last Admin Trade Name Freq PRN Reason Stop Dose Admin Benztropine Mesylate 0.5 mg 01/18/19 21:00 01/22/19 20:27 Cogentin PO 0.5 mg HS PATITO Administration Clonazepam 0.5 mg 01/19/19 21:00 01/23/19 12:26 Klonopin PO 0.5 mg QID PATITO Administration Glipizide 5 mg 01/18/19 07:30 01/23/19 07:47 Glucotrol PO 5 mg BID-AC PATITO Administration Piperacillin Sod/Tazobactam 100 mls @ 200 mls/hr 01/17/19 23:59 01/23/19 12: 26 Sod 3.375 gm/ Sodium Chloride IVPB 100 mls Q6HR PATITO Administration Metformin HCl 500 mg 01/18/19 08:00 01/23/19 07:47 Glucophage PO 500 mg BID-WM PATITO Administration Metoprolol Tartrate 50 mg 01/18/19 09:00 01/23/19 07:47 Lopressor PO 50 mg BID PATITO Administration Nicotine 14 mg 01/17/19 21:00 01/22/19 20:28 Nicoderm Patch TD Not Given Q24HR PATITO Risperidone 2 mg 01/17/19 21:00 01/22/19 20:27 Risperidone PO 2 mg HS PATITO Administration Tramadol HCl 50 mg 01/17/19 21:50 01/23/19 07:50 Ultram PO 50 mg Q8H PRN Administration Pain Venlafaxine HCl 150 mg 01/18/19 09:00 01/23/19 07:47 Effexor Xr PO 150 mg DAILY PATITO Administration - Exam General - other findings: Obese Eye: anicteric sclera ENT: moist mucosa Neck: supple, no JVD Heart: RRR Respiratory: CTAB, no rales Gastrointestinal: soft, non-tender Extremities: no clubbing Skin - other findings: wounds as documented Psychiatric: normal affect, normal behavior Hosp A/P (1) Ulcer of right foot due to type 2 diabetes mellitus Code(s): E11.621 - TYPE 2 DIABETES MELLITUS WITH FOOT ULCER; L97.519 - NON-PRS CHRONIC ULCER OTH PRT RIGHT FOOT W UNSP SEVERITY Status: Acute (2) DM type 2 (diabetes mellitus, type 2) Status: Chronic Qualifiers: Diabetes mellitus senior care insulin use: without intermediate manager use (3) Obesity (BMI 30-39.9) Code(s): E66.9 - OBESITY, UNSPECIFIED Status: Chronic (4) Anxiety and depression Code(s): F41.8 - OTHER SPECIFIED ANXIETY DISORDERS Status: Chronic (5) HTN (hypertension) Code(s): I10 - ESSENTIAL (PRIMARY) HYPERTENSION Status: Chronic Qualifiers: Hypertension type: essential hypertension Qualified Code(s): I10 - Essential (primary) hypertension - Plan continue antibiotics, out of bed/ambulate Continue Zosyn and vancomycin. Blood sugars controlled. s/p debridement and foreign body removal. Home when stepped down to oral antibiotics.
--- NOTE | 2019-01-23 19:10 | DIS ---
DATE OF ADMISSION: 01/17/2019 DATE OF DISCHARGE: 01/23/2019 PRIMARY CARE PROVIDER: [facility]. DISCHARGE DIAGNOSES: 1. Diabetic foot infection, right. 2. Retained foreign body in the right foot. CONDITION OF PATIENT ON THE DAY OF DISCHARGE: Stable. I assessed Mr. Swenson on the day of discharge. Please refer to my daily hospitalist progress note for further details regarding this [id number] encounter. DISCHARGE MEDICATIONS: Augmentin 875/125 mg tablets 2 times a day for 10 more days. Otherwise, no change was made to his pre-admission home medications as dictated by Dr. Zavala in his history and physical note dated 01/17/2019. CONSULTATIONS DURING THIS HOSPITALIZATION: Podiatry, Dr. Sanders. HOSPITAL COURSE: Mr. Swenson is a pleasant 58-year-old gentleman who was admitted to [facility] on 01/17/2019, for right foot infection. Please refer to Dr. Zavala's history and physical note dated 01/17/2019, for further details. X-ray of the right foot at the time of admission showed linear metallic foreign bodies in the subcutaneous soft tissues at the plantar aspect base of the great toe as well as plantar aspect of the forefoot at the level of 3rd and 4th metatarsal heads. He received intravenous antibiotics. He was seen by Podiatry Service. He underwent removal of foreign bodies on 01/19/2019. He continued to improve. He has been cleared for discharge by Podiatry Service. He is being discharged home on oral antibiotics. He has been advised to follow up with primary care provider. POST-DISCHARGE FOLLOWUP: Follow up with primary care provider in 3 to 5 days and Podiatry service in 2 to 3 weeks. Many thanks for allowing me to participate in your patient's care. Please feel free to contact me with any questions or concerns. DISCHARGE DESTINATION: Home. TIME SPENT: Total amount of time spent coordinating this discharge: 32 minutes. LABORATORY DATA: On the day of discharge, Mr. Swenson has sodium 140, potassium 4.0, creatinine 0.76. White count 7800, hemoglobin 12.9, and platelet count 250,000. Job ID: [id number]
[2019-01-23] MEDS: risperiDONE 1 MG TAB PO SCH (20:09)
[2019-01-23] MEDS: Benztropine 1 MG TAB PO SCH (20:09)
[2019-01-23] MEDS: Nicotine 14 MG PATCH TD SCH (20:10)
[2019-01-24 06:08] LABS: #Basophils 0.1 thou/uL (0.0-0.2); #Eosinphils 0.3 thou/uL (0.0-0.7); #Lymphocytes 3.1 thou/uL (1.20-3.40); #Monocytes 0.7 thou/uL (0.11-0.59); %Basophils 0.7 % (0.0-1.0); %Eosinophils 3.8 % (0.0-10.0); %Lymphocytes 38.1 % (21.0-51.0); %Monocytes 8.5 % (0.0-10.0); %Neutrophils 48.9 % (42.0-75.0); Hemoglobin 14.1 g/dL (14.0-18.0); Mean Corpuscular HGB CONC 33.5 g/dL (32.0-36.0); Mean Corpuscular Volume 92.3 fL (78.0-98.0); Mean Platelet Volume 7.7 fL (7.4-10.4); Platelet Count 264 thou/uL (130-400); RBC Distribution Width 11.4 % (11.5-14.5); Red Blood Cell (RBC) Count 4.55 mill/uL (4.70-6.10); White Blood Cell (WBC) Count 8.2 thou/uL (4.8-10.8)
[2019-01-24] MEDS: Piperacillin/Tazobactam 3.375 GM in Sodium Chloride 0.9% 100 ML IVPB SCH ×3 (06:10→17:24)
[2019-01-24 06:31] LABS: Anion Gap 10 mmol/L (10-20); BUN (Urea Nitrogen) 10 mg/dL (8.4-25.7); Calc. Creatinine Clearance 152 mL/min (70-130); Calcium 9.3 mg/dL (7.8-10.44); Carbon Dioxide 26 mmol/L (22-29); Chloride 107 mmol/L (98-107); Estimated GFR-MDRD Greater than 90; Glucose 130 mg/dL (70-105); Potassium 4.2 mmol/L (3.5-5.1); Sodium 139 mmol/L (136-145)
[2019-01-24] MEDS: traMADol HCl 50 MG TAB PO PRN ×2 (07:35→17:24)
[2019-01-24] MEDS: metFORMIN 500 MG TAB PO SCH ×2 (07:35→16:49)
[2019-01-24] MEDS: Metoprolol Tartrate 50 MG TAB PO SCH ×2 (07:35→20:23)
[2019-01-24] MEDS: clonazePAM 0.5 MG TAB PO SCH ×4 (07:35→20:22)
[2019-01-24] MEDS: glipiZIDE 5 MG TAB PO SCH ×2 (07:35→16:49)
[2019-01-24] MEDS: Venlafaxine HCl XR 150 MG CAP PO SCH (07:35)
--- NOTE | 2019-01-24 19:04 | PDOC.HOSPP ---
- Subjective Encounter Date: 01/24/19 Encounter Time: 19:03 Subjective: Pt seen for followup re: right foot diabetic ulcer. No complaints. - Objective Vital Signs & Weight: Vital Signs (12 hours) Temp Pulse Resp BP BP Pulse Ox 01/24/19 08:10 97.9 F 58 L 18 132/77 95 01/24/19 08:00 95 01/24/19 07:32 97.5 F L 60 16 148/84 H 97 Weight Admit Weight 242 lb Weight 242 lb Result Diagrams: 01/24/19 05:50 01/24/19 05:50 Additional Labs: Accuchecks 01/24/19 01/24/19 01/24/19 16:54 11:38 04:16 POC Glucose 100 61 L 117 H 01/23/19 19:48 POC Glucose 115 H Labs and MARs reviewed by ks Hospitalist ROS - Review of Systems Cardiovascular: denies: chest pain, palpitations, orthopnea, paroxysmal noc. dyspnea, edema, light headedness Musculoskeletal: denies: neck pain, shoulder pain, arm pain, back pain, hand pain, leg pain, foot pain - Medication Medications: Active Medications Generic Name Dose Route Start Last Admin Trade Name Freq PRN Reason Stop Dose Admin Benztropine Mesylate 0.5 mg 01/18/19 21:00 01/23/19 20:09 Cogentin PO 0.5 mg HS PATTIO Administration Clonazepam 0.5 mg 01/19/19 21:00 01/24/19 17:24 Klonopin PO 0.5 mg QID PATITO Administration Glipizide 5 mg 01/18/19 07:30 01/24/19 16:49 Glucotrol PO Not Given BID-AC PATITO Piperacillin Sod/Tazobactam 100 mls @ 200 mls/hr 01/17/19 23:59 01/24/19 17: 24 Sod 3.375 gm/ Sodium Chloride IVPB 100 mls Q6HR PATITO Administration Metformin HCl 500 mg 01/18/19 08:00 01/24/19 16:49 Glucophage PO Not Given BID-WM PATITO Metoprolol Tartrate 50 mg 01/18/19 09:00 01/24/19 07:35 Lopressor PO 50 mg BID PATITO Administration Nicotine 14 mg 01/17/19 21:00 01/23/19 20:10 Nicoderm Patch TD Not Given Q24HR PATITO Risperidone 2 mg 01/17/19 21:00 01/23/19 20:09 Risperidone PO 2 mg HS PATITO Administration Tramadol HCl 50 mg 01/17/19 21:50 01/24/19 17:24 Ultram PO 50 mg Q8H PRN Administration Pain Venlafaxine HCl 150 mg 01/18/19 09:00 01/24/19 07:35 Effexor Xr PO 150 mg DAILY PATITO Administration - Exam General Appearance: NAD Eye: anicteric sclera ENT: moist mucosa Neck: supple Heart: RRR Respiratory: CTAB Gastrointestinal: soft Skin - other findings: wound as documented Psychiatric: normal behavior Hosp A/P (1) Ulcer of right foot due to type 2 diabetes mellitus Code(s): E11.621 - TYPE 2 DIABETES MELLITUS WITH FOOT ULCER; L97.519 - NON-PRS CHRONIC ULCER OTH PRT RIGHT FOOT W UNSP SEVERITY Status: Acute (2) DM type 2 (diabetes mellitus, type 2) Status: Chronic Qualifiers: Diabetes mellitus rock crusher insulin use: without rock crusher use (3) Obesity (BMI 30-39.9) Code(s): E66.9 - OBESITY, UNSPECIFIED Status: Chronic (4) Anxiety and depression Code(s): F41.8 - OTHER SPECIFIED ANXIETY DISORDERS Status: Chronic (5) HTN (hypertension) Code(s): I10 - ESSENTIAL (PRIMARY) HYPERTENSION Status: Chronic Qualifiers: Hypertension type: essential hypertension Qualified Code(s): I10 - Essential (primary) hypertension - Plan continue antibiotics, out of bed/ambulate Continue Zosyn and vancomycin. Pt will be on Augmentin after discharge. Blood sugars controlled. s/p debridement and foreign body removal. Plan was to go home today and await insurance authorization at home, however pt did not want to go home prior to wound care being set up.
[2019-01-24] MEDS: Benztropine 1 MG TAB PO SCH (20:22)
[2019-01-24] MEDS: Nicotine 14 MG PATCH TD SCH (20:23)
[2019-01-24] MEDS: risperiDONE 1 MG TAB PO SCH (20:23)
--- NOTE | 2019-01-25 03:29 | DIS ---
DATE OF ADMISSION: 01/17/2019 DATE OF DISCHARGE: 01/24/2019 PRIMARY CARE PROVIDER: Paco Giles. DISCHARGE DIAGNOSES: 1. Right diabetic foot infection. 2. Retained foreign body in the right foot. Please note that I dictated a discharge summary on Mr. Swenson on January 23, 2019. He could not be discharged that day because of delay in arranging for outpatient wound care. The patient is being discharged home on January 24, 2019. CONDITION OF PATIENT ON THE DAY OF DISCHARGE: I assessed Mr. Swenson on January 24, 2019. He denies any complaints. Vital signs are stable. S1 and S2 are heard, regular. Lungs are clear to auscultation bilaterally. DISCHARGE DESTINATION: As described in my discharge summary dated January 23, 2019. CONSULTATIONS DURING THIS HOSPITALIZATION: Podiatry, Anderson Sanders DPM HOSPITAL COURSE: As dictated in my discharge summary dated January 23, 2019. POST-DISCHARGE FOLLOWUP: With primary care provider in 3 to 5 days and Podiatry Service in 2 to 3 weeks. DISCHARGE DESTINATION: Home. TIME SPENT: Total amount of time spent coordinating this discharge: 19 minutes. Job ID: [id number]
[2019-01-25] MEDS: Piperacillin/Tazobactam 3.375 GM in Sodium Chloride 0.9% 100 ML IVPB SCH ×3 (05:33→13:13)
[2019-01-25 06:11] LABS: #Basophils 0.1 thou/uL (0.0-0.2); #Eosinphils 0.3 thou/uL (0.0-0.7); #Lymphocytes 2.7 thou/uL (1.20-3.40); #Monocytes 0.6 thou/uL (0.11-0.59); #Neutrophils 3.5 thou/uL (1.40-6.50); %Eosinophils 4.5 % (0.0-10.0); %Lymphocytes 37.2 % (21.0-51.0); %Monocytes 8.9 % (0.0-10.0); %Neutrophils 48.4 % (42.0-75.0); Hemoglobin 12.9 g/dL (14.0-18.0); Mean Corpuscular HGB CONC 33.7 g/dL (32.0-36.0); Mean Corpuscular Hemoglobin 31.4 pg (27.0-31.0); Mean Corpuscular Volume 93.3 fL (78.0-98.0); Mean Platelet Volume 8.1 fL (7.4-10.4); Platelet Count 249 thou/uL (130-400); RBC Distribution Width 11.4 % (11.5-14.5); Red Blood Cell (RBC) Count 4.11 mill/uL (4.70-6.10); White Blood Cell (WBC) Count 7.2 thou/uL (4.8-10.8)
[2019-01-25 06:33] LABS: Anion Gap 9 mmol/L (10-20); BUN (Urea Nitrogen) 10 mg/dL (8.4-25.7); Calc. Creatinine Clearance 156 mL/min (70-130); Carbon Dioxide 28 mmol/L (22-29); Chloride 106 mmol/L (98-107); Estimated GFR-MDRD Greater than 90; Glucose 117 mg/dL (70-105); Potassium 3.7 mmol/L (3.5-5.1); Sodium 139 mmol/L (136-145)
[2019-01-25] MEDS: traMADol HCl 50 MG TAB PO PRN (07:33)
[2019-01-25] MEDS: Venlafaxine HCl XR 150 MG CAP PO SCH (07:34)
[2019-01-25] MEDS: clonazePAM 0.5 MG TAB PO SCH ×2 (07:34→13:08)
[2019-01-25] MEDS: glipiZIDE 5 MG TAB PO SCH (07:34)
[2019-01-25] MEDS: Metoprolol Tartrate 50 MG TAB PO SCH (07:34)
[2019-01-25] MEDS: metFORMIN 500 MG TAB PO SCH (07:34)
[2019-01-25 13:01] VITALS: BP 149/89; TEMP 97.4
--- NOTE | 2019-01-26 00:51 | DIS ---
DATE OF ADMISSION: 01/17/2019 DATE OF DISCHARGE: 01/25/2019 PRIMARY CARE PROVIDER: Paco Giles. DISCHARGE DIAGNOSES: 1. Right diabetic foot infection. 2. Retained foreign body in the right foot. Please note that I dictated a discharge summary on Mr. Swenson on January 23, 2019. There was delay in arranging for outpatient wound care. He is being discharged on January 25, 2019. CONDITION OF PATIENT ON THE DAY OF DISCHARGE: Stable. I assessed Mr. Swenson on January 25, 2019. He did not have any complaints. Vital signs are stable. S1 and S2 are heard, regular. Lungs are clear to auscultation bilaterally. CONSULTATIONS DURING THIS HOSPITALIZATION: Podiatry, Anderson Sanders DPM HOSPITAL COURSE: As dictated in my discharge summary dated January 23, 2019. POST DISCHARGE FOLLOWUP: With primary care provider in 3 to 5 days and Podiatry Service in 2 to 3 weeks. DISCHARGE MEDICATIONS: 1. Tylenol No. 3 p.r.n. 2. Augmentin 875 mg 2 times a day for 10 days. 3. Benztropine 0.5 mg at bedtime. 4. Clonazepam 0.5 mg daily. 5. Metoprolol tartrate 50 mg 2 times a day. 6. Risperidone 2 mg at bedtime. 7. Venlafaxine 150 mg daily. 8. Glipizide 5 mg 2 times a day. 9. Metformin 500 mg 2 times a day. Many thanks for allowing me to participate in your patient's care. Please feel free to contact me with any questions or concerns. DISCHARGE DESTINATION: Home with home health. TIME SPENT: Total amount of time spent coordinating this discharge: 15 minutes. Job ID: [id number]
== END 2019-01-25 13:23 | disposition home health service (06) | DRG 638 ==
LOC: ERS 15:49 → T4-A 19:27
PROVIDERS: ADMIT Internal Medicine; ATTEND Internal Medicine
PROC: 3E02340 Introduction of Influenza Vaccine into Muscle, Percutaneous Approach (ICD-10-PCS; 2019-01-18)
PROC: 0JCQ3ZZ Extirpation of Matter from Right Foot Subcutaneous Tissue and Fascia, Percutaneous Approach (ICD-10-PCS; principal; 2019-01-19)
DX: E11.621 Type 2 diabetes mellitus with foot ulcer (principal); L03.115 Cellulitis of right lower limb; Z23 Encounter for immunization; F17.210 Nicotine dependence, cigarettes, uncomplicated; E78.5 Hyperlipidemia, unspecified; E78.1 Pure hyperglyceridemia; I10 Essential (primary) hypertension; F31.9 Bipolar disorder, unspecified; S90.851A Superficial foreign body, right foot, initial encounter; E11.42 Type 2 diabetes mellitus with diabetic polyneuropathy; L97.519 Non-pressure chronic ulcer of other part of right foot with unspecified severity; E66.9 Obesity, unspecified; F41.8 Other specified anxiety disorders; Z59.0 Homelessness; Z79.84 Long term (current) use of oral hypoglycemic drugs; Z79.899 Other long term (current) drug therapy; Z68.35 Body mass index [BMI] 35.0-35.9, adult
CPT/HCPCS: 36415; 36416; 76000; 80048; 80053; 83605; 85025; 88305; 96365; 96367; J2001; J2405; J2543; J2704; J3010; J3490; S0020

== ENCOUNTER 2019-08-04 14:22 | Inpatient (IN) | payer OTHER ==
--- NOTE | 2019-08-04 16:34 | RAD ---
Exam:3 views right foot HISTORY: Nonhealing wound. Pain. COMPARISON: None FINDINGS: Soft tissue ulcer along the medial aspect of the right foot at the level of the first metat arsal phalangeal joint space. Associated soft tissue swelling. No erosive or destructive changes. No fracture Joint spaces are preserved. Lisfranc alignment is maintained. IMPRESSION: 1. Soft tissue ulceration along the first digit. Soft tissue swelling suggesting cellulitis. No radio graphic evidence of osteomyelitis.
[2019-08-04 16:58] LABS: #Eosinphils 0.1 thou/uL (0.0-0.7); #Lymphocytes 2.1 thou/uL (1.20-3.40); #Monocytes 1.2 thou/uL (0.11-0.59); #Neutrophils 7.3 thou/uL (1.40-6.50); %Eosinophils 1.2 % (0.0-10.0); %Lymphocytes 19.5 % (21.0-51.0); %Monocytes 11.3 % (0.0-10.0); Hemoglobin 12.3 g/dL (14.0-18.0); Mean Corpuscular HGB CONC 32.2 g/dL (32.0-36.0); Mean Corpuscular Hemoglobin 29.3 pg (27.0-31.0); Mean Platelet Volume 6.7 fL (7.4-10.4); Platelet Count 372 thou/uL (130-400); RBC Distribution Width 12.2 % (11.5-14.5); Red Blood Cell (RBC) Count 4.22 mill/uL (4.70-6.10); White Blood Cell (WBC) Count 10.7 thou/uL (4.8-10.8)
[2019-08-04] MEDS ORDERED: Cefepime 2 GM VIAL ONE (17:01)
[2019-08-04 17:26] LABS: ALT (SGPT) 20 U/L (8-55); AST (SGOT) 27 U/L (5-34); Albumin 3.3 g/dL (3.5-5.0); Alkaline Phosphatase 99 U/L (40-110); Anion Gap 15 mmol/L (10-20); BUN (Urea Nitrogen) 9 mg/dL (8.4-25.7); Bilirubin, Total 0.6 mg/dL (0.2-1.2); Calc. Creatinine Clearance 0 mL/min (70-130); Calcium 8.9 mg/dL (7.8-10.44); Carbon Dioxide 28 mmol/L (22-29); Chloride 90 mmol/L (98-107); Estimated GFR-MDRD Greater than 90; Globulin 5.1 g/dL (2.4-3.5); Glucose 250 mg/dL (70-105); Potassium 3.9 mmol/L (3.5-5.1); Protein, Total 8.4 g/dL (6.0-8.3); Sodium 129 mmol/L (136-145)
[2019-08-04] MEDS ORDERED: Vancomycin 1 GM/200 ML BAG ONE ×2 (18:31→18:32)
[2019-08-04] MEDS ORDERED: Acetaminophen 500 MG TAB ONE (19:04)
[2019-08-04] MEDS ORDERED: Acetaminophen 325 MG TAB PO PRN (19:34)
[2019-08-04] MEDS ORDERED: Senokot S 8.6-50 MG TAB PO PRN (19:34)
[2019-08-04] MEDS ORDERED: HYDROcodone/Acetaminophen 5/325 mg Tablet PO PRN (19:34)
[2019-08-04] MEDS ORDERED: Calcium Carbonate 500 MG ChewTAB PO PRN (19:34)
--- NOTE | 2019-08-04 21:01 | HP ---
PRIMARY CARE PROVIDER: Paco in [facility]. CHIEF COMPLAINT: Worsening diabetic foot ulcer. HISTORY OF PRESENT ILLNESS: The patient is a 59-year-old male with a past medical history significant for diabetes type 2, hypertension, and hyperlipidemia, who presents to the ER for the above complaint. The patient reports that over the past several days, he has had worsening symptoms for his diabetic foot ulcer on his right foot. He reports increased redness, swelling, and pain, stating that the pain is "like I have never had before." He denies any fever or chills. He denies any nausea or vomiting. He reports that he has been dealing with this foot ulcer since December. He was seeing Wound Care and it was progressing well. Then the COVID pandemic hit and he stopped going to see Wound Care. He estimates that was in February of 2019. For the aforementioned reasons, the patient decided to go to the ER. In the ER, the patient was afebrile. He was tachycardic with heart rate of 102. He rated his pain scale 10/10. His WBCs were 10.7. His lactic acid was 1.4. X-ray of the right foot did show soft tissue ulceration along the first digit, soft tissue swelling suggests cellulitis. No radiographic evidence of osteomyelitis. He had a sodium that was found to be 129 and a blood sugar of 250. He was given vancomycin and cefepime IV piggyback and Tylenol for his pain. PAST MEDICAL HISTORY: 1. Diabetes. 2. Takes metformin unknown dose. 3. Hyperlipidemia. 4. Hypertension. 5. Anxiety and depression. PAST SURGICAL HISTORY: Left foot surgery x4. SOCIAL HISTORY: The patient lives alone and his home in [place]. He reports a one pack per day smoking history. He denies any alcohol or illicit drug use. He ambulates without any assistance. He is unemployed at this time. FAMILY HISTORY: Significant for diabetes. ALLERGIES: THE PATIENT REPORTS NO KNOWN ALLERGIES. MEDICATIONS: 1. Metformin, unknown dosage. 2. Atorvastatin, unknown dosage. 3. Metoprolol, unknown dosage. 4. Klonopin 0.5 mg p.o. q.i.d. 5. Effexor XR 150 mg extended release two tablets p.o. daily. REVIEW OF SYSTEMS: All review of systems are negative unless otherwise noted in the HPI. PHYSICAL EXAMINATION: VITAL SIGNS: Temperature 99.5 oral, blood pressure 154/89, heart rate 102, respirations 20, and SpO2 of 99% on room air. Pain scale 10/10. CONSTITUTIONAL: The patient is afebrile. Pulse normal. Blood pressure normal. Respiratory rate normal. The patient appears nontoxic, no acute distress. He is alert and oriented to person, place, and time. HEAD: Atraumatic and normocephalic. Eyes: PERRLA. Extraocular muscles intact. Sclerae are nonicteric. ENT: Normal ear exam. Tympanic membranes normal. No bleeding. Pharynx, oropharynx clear. Uvula midline. Tonsils normal. Mucous membranes were moist. NECK: Supple. Trachea midline. No JVD. No meningeal signs. No cervical adenopathy. CHEST: Respirations even and unlabored. Breath sounds were clear to auscultation. No rhonchi, wheezes, or rales. CARDIOVASCULAR: The patient is found to be tachycardic, regular rhythm. Normal heart sounds. No murmurs, rubs, or gallops auscultated. ABDOMEN: Soft and nontender. Active bowel sounds. No peritoneal signs. No rigidity. No guarding. No rebound. BACK: Normal range of motion. No CVA tenderness. No central spinous tenderness. EXTREMITIES: Upper extremities, inspection was normal. Range of motion was normal. Motor strength was normal. Sensation intact. Radial pulses were normal. Lower extremities, the right foot had significant swelling and erythema that extended to the dorsal aspect of the right foot. There was a deep, linear ulceration to the base of the first MTP joint on the plantar aspect. There is also some small ulcerations to the lateral aspect of the great toe on the right foot. Left lower extremity, there is no swelling. No erythema. Full range of motion. Pedal pulses were palpable bilateral with brisk cap refill. NEURO: The patient was alert and oriented to person, place, and time. GCS of 15. SKIN: Warm, dry, and intact. PSYCHIATRIC: Denies any homicidal or suicidal ideation at this time. The patient is pleasant with a normal affect. LABORATORY DATA: WBCs were 10.07, hemoglobin 12.3, hematocrit 38.4, and platelets 372. Sodium 129, potassium 3.9, chloride 90, carbon dioxide 28, BUN 9, creatinine 0.83, GFR greater than 90, glucose 250, lactic acid 1.4, bilirubin 0.6, AST 27, ALT 20, alkaline phosphatase 99, and albumin 3.3. X-ray of the right foot showed soft tissue ulceration on the first digit. Soft tissue swelling suggests cellulitis. No radiographic evidence of osteomyelitis. IMPRESSION AND PLAN: 1. Nonhealing diabetic foot ulcer. We will admit the patient to medical floor on inpatient status. Expected length of stay greater than 2 midnights. The patient presented afebrile, tachycardic 102. Pain scale 10/10. X-ray of the right foot was positive for cellulitis and negative for any osteomyelitis. Lactic acid was 1.4. White blood cell count was 10.7. The patient was given vancomycin, cefepime IV piggyback, and Tylenol. Blood cultures are pending. We will continue IV vancomycin and cefepime broad spectrum coverage. We will consult Wound Care and General Surgery, and give IV fluids. We will order MRI right foot. We will send bacterial wound culture. We will check an ESR and CRP. We will check to see if the patient's tetanus is up to date. 2. Hyponatremia, mild. The patient presents with a sodium of 129 and a glucose of 250, corrected sodium is 131. We will continue IV fluid hydration and recheck labs in the a.m. 3. Diabetes 2, uncontrolled. The patient reports taking metformin, unknown dose. We will start him on a diabetic diet, mild sliding scale and Accu-Cheks before meals and at bedtime. 4. Hypertension. The patient reports taking metoprolol, unknown dose. We will await reconciliation by nursing of home dosing. The patient presented with with a blood pressure of 154/89. We will restart home medications when reconciled. 5. Hyperlipidemia. The patient takes atorvastatin, unknown dosage. We will await nursing to reconcile home medications. 6. Anxiety and depression. The patient reports taking Klonopin 0.5 mg q.i.d. and Effexor XR 300 mg p.o. daily. We will restart those medications. 7. Tobacco abuse. The patient has a pack per day history, unwilling to quit. We will start NRT therapy. We will sexual assault counsellor on tobacco cessation. 8. Lovenox for deep venous thrombosis prophylaxis. Pepcid for gastrointestinal prophylaxis. The patient is a full code. No MPOA. 9. Discussed the case with Dr. Padgett. Job ID: [id number] MTDD
[2019-08-04] MEDS: Sodium Chloride 0.9% 1,000 ML IV SCH (21:52)
[2019-08-04] MEDS: Famotidine 20 MG TAB PO SCH (21:59)
[2019-08-04] MEDS: clonazePAM 0.5 MG TAB PO SCH (22:00)
[2019-08-04] MEDS: Enoxaparin Sodium 40 MG/0.4 ML SYRINGE SC SCH (22:03)
[2019-08-04] MEDS: Nicotine 14 MG PATCH TD SCH (22:04)
[2019-08-04 22:41] VITALS: BMI 33.3
[2019-08-05] MEDS: HYDROcodone/Acetaminophen 5/325 mg Tablet PO PRN ×2 (02:35→10:15)
[2019-08-05] MEDS: Vancomycin HCl 1.25 GM in Sodium Chloride 0.9% 250 ML 250 ML IVPB SCH ×2 (03:55→13:48)
[2019-08-05] MEDS: Cefepime 1 GM in Sodium Chloride 0.9% 100 ML IVPB SCH ×2 (05:19→18:39)
[2019-08-05 05:44] LABS: #Eosinphils 0.1 thou/uL (0.0-0.7); #Lymphocytes 1.7 thou/uL (1.20-3.40); #Monocytes 1.2 thou/uL (0.11-0.59); #Neutrophils 5.1 thou/uL (1.40-6.50); %Eosinophils 1.7 % (0.0-10.0); %Lymphocytes 21.2 % (21.0-51.0); %Monocytes 14.6 % (0.0-10.0); %Neutrophils 62.5 % (42.0-75.0); Hemoglobin 11.1 g/dL (14.0-18.0); Mean Corpuscular HGB CONC 32.3 g/dL (32.0-36.0); Mean Corpuscular Hemoglobin 29.7 pg (27.0-31.0); Mean Corpuscular Volume 91.7 fL (78.0-98.0); Mean Platelet Volume 6.7 fL (7.4-10.4); Platelet Count 334 thou/uL (130-400); RBC Distribution Width 12.2 % (11.5-14.5); Red Blood Cell (RBC) Count 3.74 mill/uL (4.70-6.10); White Blood Cell (WBC) Count 8.2 thou/uL (4.8-10.8)
[2019-08-05 06:03] LABS: Anion Gap 10 mmol/L (10-20); BUN (Urea Nitrogen) 8 mg/dL (8.4-25.7); Calc. Creatinine Clearance 142 mL/min (70-130); Carbon Dioxide 29 mmol/L (22-29); Chloride 95 mmol/L (98-107); Estimated GFR-MDRD Greater than 90; Glucose 386 mg/dL (70-105); Potassium 3.5 mmol/L (3.5-5.1); Sodium 130 mmol/L (136-145)
[2019-08-05] MEDS: Venlafaxine HCl XR 150 MG CAP PO SCH (10:06)
[2019-08-05] MEDS: Famotidine 20 MG TAB PO SCH ×2 (10:06→20:41)
[2019-08-05] MEDS: clonazePAM 0.5 MG TAB PO SCH ×4 (10:06→20:41)
[2019-08-05] MEDS: Sodium Chloride 0.9% 1,000 ML IV SCH (10:07)
[2019-08-05] MEDS ORDERED: EPHEDRINE 25 MG/5 ML SYRINGE ONE (10:19)
[2019-08-05] MEDS ORDERED: Ondansetron PF 4 MG/2 ML Vial ONE (10:19)
[2019-08-05] MEDS ORDERED: PROPOFOL 200 MG/20 ML VIAL ONE (10:19)
[2019-08-05] MEDS ORDERED: Lidocaine 1% PF 5 ML VIAL ONE (10:19)
[2019-08-05] MEDS ORDERED: Fentanyl 100 MCG/2 ML VIAL ONE ×2 (10:40→13:05)
[2019-08-05] MEDS ORDERED: Acetaminophen 500 MG TAB PO PRN (11:06)
[2019-08-05] MEDS ORDERED: traMADol HCl 50 MG TAB PO PRN (11:06)
[2019-08-05] MEDS ORDERED: Ibuprofen 600 MG TAB PO PRN (11:06)
--- NOTE | 2019-08-05 11:39 | CON ---
DATE OF CONSULTATION: HISTORY OF PRESENT ILLNESS: A 59-year-old male patient, who lives alone, is on disability for psychiatric reasons, smokes a pack a day, and has had a diabetic right foot ulcer, plantar base of the first digit. He has been seeing Wound Care, but because of the pandemic, he claims he quit seeing Wound Care in February. He presents to the emergency room with cellulitis and infection, right foot. X-rays revealed soft tissue infection without obvious osteomyelitis. Evaluation reveals that he has a large open wound, plantar aspect of the base of the first great toe. This extends down to the bone and undermines. There are tremendous swelling and cellulitis extending up to the ankles. Edema up to above the ankle. He has palpable pedal pulses. MRI has been ordered, and this will be canceled. He needs amputation of his right great toe and metatarsal. Wound Care consultation for outpatient wound care. Anticipated discharge next week with VAC care. He will be discharged home on oral antibiotics. He will have an open wound that will heal secondarily. Prior to this hospitalization, he was on Augmentin and failed treatment. Blood cultures, negative to-date, 08/04/2019. Cultures obtained from the foot were obtained at 0230 this morning. The patient was in the emergency room at 4 p.m. yesterday when the blood cultures were obtained. ALLERGIES: NONE. SOCIAL HISTORY: Tobacco, a pack per day. Alcohol, none. Drug use, none. MEDICATIONS: 1. Clonazepam. 2. Venlafaxine. 3. Tramadol. 4. Risperidone. 5. Metformin. 6. Glipizide. 7. Metoprolol. 8. Augmentin. PAST SURGICAL HISTORY: Left great toe surgeries in [place]. PAST MEDICAL HISTORY: Diabetes mellitus, hypertension, hyperlipidemia, anxiety, depression, and he reports that he is on disability because of psychiatric illness. I have asked him if he has bipolar illness with schizophrenia, he states that it is something like that. REVIEW OF SYSTEMS: Noncontributory. He denies any history of cardiac disease. He has not had any cardiac stress test or other cardiac evaluation procedures. He has never had a colonoscopy. As stated above, he lives alone. PHYSICAL EXAMINATION: VITAL SIGNS: Height 5 feet 9 inches, weight 226 pounds, BMI 33. Temperature 99 degrees, heart rate 82, blood pressure 107/69. HEAD, EARS, EYES, NOSE, AND THROAT: Unremarkable. GENERAL: Alert and oriented. NECK: Palpable carotids. No bruits. LUNGS: Clear to auscultation. No wheezing. CARDIAC: Regular rate and rhythm without murmur or gallop. ABDOMEN: Soft and nontender. EXTREMITIES: Palpable femoral, popliteal, and dorsalis pedis pulses bilaterally. Changes in his left great toe from prior podiatry surgeries in [place]. Right foot; edematous to above the ankle, cellulitis to the ankle. Right great toe infection with plantar ulcer, exposed granulation tissue that tracks proximally. More medial ulceration, punctate, junction metatarsophalangeal joint, undermines plantar and distally about 4 cm with a large underlying cavity with purulent discharge from the plantar ulcer. LABORATORY DATA: White count 10, hemoglobin 12. Sodium 130, potassium 3.5, BUN 8, creatinine 0.82. ASSESSMENT AND PLAN: Diabetic foot infection, right. We would recommend amputation of the right great toe and metatarsal. We will cancel his MRIs. This will not change treatment. He has a severe underlying infection with plantar ulceration communicating in the metatarsophalangeal joint and severe surrounding purulence and tracking and a necrotizing infection. He is on vancomycin and cefepime. We will plan this today. Wound Care involvement and outpatient oral antibiotic. Discharge eventually next week as noted above. Job ID: [id number]
[2019-08-05] MEDS ORDERED: Insulin Regular 300 UNITS/3 ML VIAL ONE (11:43)
[2019-08-05] MEDS ORDERED: Promethazine HCl 25 MG/ML VIAL IM PRN (12:50)
[2019-08-05] MEDS ORDERED: Ondansetron HCl/PF 4 MG/2 ML Vial IVP PRN (12:50)
[2019-08-05] MEDS ORDERED: Promethazine HCl 25 MG/ML VIAL SLOW IVP PRN (12:50)
--- NOTE | 2019-08-05 13:31 | OP ---
DATE OF PROCEDURE: 08/05/2019 PREOPERATIVE DIAGNOSIS: Necrotizing diabetic right foot infection with plantar ulcer, cellulitis, and abscess, right foot, non-salvageable. PROCEDURE PERFORMED: Amputation of right great toe and metatarsal. Note, good blood supply, pulsatile bleeding, palpable pulses. Wound Care placed a wound VAC. ANESTHESIA: General anesthesia. Local none. DESCRIPTION OF PROCEDURE: The patient was taken to the operating room where under general LMA anesthesia, right lower extremity was prepared with ChloraPrep and draped in routine fashion. The patient had very poor hygiene. Cleaned between the toes with a Ray-Johnny. I trimmed the toenails. I amputated the right great toe, making a racquet incision, excising, preserving as much skin as possible, but yet excising multiple sinus tracts and openings and wounds. The toe and metatarsal resected by dividing the metatarsal with a bone cutter, resecting approximately with a rongeur. Cartilaginous tissue resected. Tendon resected. Hemostasis was gained with cautery. Pulsatile bleeding noted. Good hemostasis noted. Wound irrigated. Avitene applied. Wound care team arrived to place a wound VAC. The patient tolerated the procedure well. Job ID: [id number]
--- NOTE | 2019-08-05 17:01 | PDOC.HOSPP ---
- Subjective Encounter Date: 08/05/19 Encounter Time: 17:00 Subjective: Mr. Swenson was aeen today in follow-up of diabetic foot infection. He is s/p amputation of the great toe on the right foot. He notes some pain. - Objective Vital Signs & Weight: Vital Signs (12 hours) Temp Pulse Resp BP Pulse Ox 08/05/19 16:00 98.2 F 79 20 122/74 98 08/05/19 09:50 95 08/05/19 07:11 99.0 F 82 16 107/69 95 Weight Admit Weight 226 lb Weight 226 lb I&O: 08/04/19 08/05/19 08/06/19 06:59 06:59 06:59 Intake Total 800 Balance 800 Result Diagrams: 08/05/19 05:20 08/05/19 05:20 Additional Labs: Accuchecks 08/05/19 08/05/19 08/04/19 12:27 11:43 21:03 POC Glucose 276 H 297 H 195 H Hospitalist ROS - Medication Medications: Active Medications Generic Name Dose Route Start Last Admin Trade Name Freq PRN Reason Stop Dose Admin Clonazepam 0.5 mg 08/04/19 21:00 08/05/19 13:48 Klonopin PO 0.5 mg QID PATITO Administration Enoxaparin Sodium 40 mg 08/04/19 21:00 08/04/19 22:03 Lovenox SC 40 mg 2100 PATITO Administration Famotidine 20 mg 08/04/19 21:00 08/05/19 10:06 Pepcid PO 20 mg BID PATITO Administration Vancomycin HCl 1.25 gm/ Sodium 250 mls @ 166.667 mls/hr 08/05/19 04:00 13:48 Chloride IVPB Not Given 0400,1200,2000 PATITO Cefepime HCl 1 gm/ Sodium 100 mls @ 200 mls/hr 08/05/19 05:00 08/05/19 05:19 Chloride IVPB 100 mls 0500,1700 PATITO Administration Nicotine 14 mg 08/04/19 21:00 08/04/19 22:04 Nicoderm Patch TD Not Given Q24HR PATITO Tramadol HCl 50 mg 08/05/19 11:06 08/05/19 13:50 Ultram PO 50 mg Q4H PRN Administration Moderate Pain (4-6) Venlafaxine HCl 300 mg 08/05/19 09:00 08/05/19 10:06 Effexor Xr PO 300 mg DAILY PATITO Administration - Exam Eye: PERRL, anicteric sclera Heart: RRR, no murmur, no gallops, no rubs, normal peripheral pulses Respiratory: CTAB, no wheezes, no rales, no ronchi, normal chest expansion Gastrointestinal: soft, non-tender, non-distended, normal bowel sounds Extremities: no cyanosis (foot is dressed) Hosp A/P (1) Ulcer of right great toe due to diabetes mellitus Code(s): E11.621 - TYPE 2 DIABETES MELLITUS WITH FOOT ULCER; L97.519 - NON-PRS CHRONIC ULCER OTH PRT RIGHT FOOT W UNSP SEVERITY Status: Acute (2) Ulcer of right foot due to type 2 diabetes mellitus Code(s): E11.621 - TYPE 2 DIABETES MELLITUS WITH FOOT ULCER; L97.519 - NON-PRS CHRONIC ULCER OTH PRT RIGHT FOOT W UNSP SEVERITY Status: Acute (3) Bipolar 1 disorder Code(s): F31.9 - BIPOLAR DISORDER, UNSPECIFIED Status: Acute (4) DM hyperosmolarity type II, uncontrolled Code(s): E11.00 - TYPE 2 DIAB W HYPROSM W/O NONKET HYPRGLY-HYPROS COMA ([facility]); E11.65 - TYPE 2 DIABETES MELLITUS WITH HYPERGLYCEMIA Status: Chronic (5) HTN (hypertension) Code(s): I10 - ESSENTIAL (PRIMARY) HYPERTENSION Status: Chronic Qualifiers: Hypertension type: essential hypertension Qualified Code(s): I10 - Essential (primary) hypertension (6) Obesity (BMI 30-39.9) Code(s): E66.9 - OBESITY, UNSPECIFIED Status: Chronic - Plan * Diabetic foot infection- he is s/p amputation of the great toe on the right foot. * Continue IV Cefepime and Vancomycin * Continue local wound care * Will add medication for symptom relief * DM- will re-start Metformin and continue SSI * HTN- blood pressure is stable * Bipolar disorder- re-start Respidal
[2019-08-05] MEDS: metFORMIN 500 MG TAB PO SCH (17:13)
[2019-08-05] MEDS: Morphine 2 MG/ML SYRINGE SLOW IVP PRN (17:13)
[2019-08-05 19:17] LABS: Vancomycin, Trough 9.2 ug/mL
[2019-08-05] MEDS: Metoprolol Tartrate 50 MG TAB PO SCH (20:41)
[2019-08-05] MEDS: risperiDONE 1 MG TAB PO SCH (20:41)
[2019-08-05] MEDS: Vancomycin HCl 1.75 GM in Sodium Chloride 0.9% 500 ML IVPB SCH (20:41)
[2019-08-05] MEDS: Enoxaparin Sodium 40 MG/0.4 ML SYRINGE SC SCH (20:41)
[2019-08-05] MEDS: Nicotine 14 MG PATCH TD SCH (23:42)
[2019-08-06] MEDS: Vancomycin HCl 1.75 GM in Sodium Chloride 0.9% 500 ML IVPB SCH ×3 (04:18→20:10)
[2019-08-06] MEDS: Cefepime 1 GM in Sodium Chloride 0.9% 100 ML IVPB SCH ×2 (05:00→16:42)
[2019-08-06 06:45] LABS: Hemoglobin A1c 11.1 % (4.0-6.0)
[2019-08-06] MEDS: Famotidine 20 MG TAB PO SCH ×2 (09:02→21:58)
[2019-08-06] MEDS: Metoprolol Tartrate 50 MG TAB PO SCH ×2 (09:02→21:59)
[2019-08-06] MEDS: metFORMIN 500 MG TAB PO SCH ×2 (09:02→16:42)
[2019-08-06] MEDS: Venlafaxine HCl XR 150 MG CAP PO SCH (09:02)
[2019-08-06] MEDS: clonazePAM 0.5 MG TAB PO SCH ×4 (09:02→21:58)
[2019-08-06] MEDS: Polyethylene Glycol 3350 17 GM Packet PO SCH (09:03)
[2019-08-06] MEDS: HYDROcodone/Acetaminophen 10/325 mg Tablet PO PRN ×3 (09:05→22:03)
[2019-08-06] MEDS: HumuLIN 70/30 (300 UNITS/3 ML VIAL) SC SCH ×2 (11:05→21:59)
[2019-08-06] MEDS: glipiZIDE 5 MG TAB PO SCH (16:42)
--- NOTE | 2019-08-06 18:35 | PDOC.HOSPP ---
- Subjective Encounter Date: 08/06/19 Encounter Time: 10:11 Subjective: pt up in bed no complains - Objective Vital Signs & Weight: Vital Signs (12 hours) Temp Pulse Resp BP Pulse Ox 08/06/19 09:05 94 L 08/06/19 07:16 98.5 F 79 20 134/81 94 L Weight Admit Weight 226 lb Weight 226 lb I&O: 08/05/19 08/06/19 08/07/19 06:59 06:59 06:59 Intake Total 800 1600 Balance 800 1600 Result Diagrams: 08/05/19 05:20 08/05/19 05:20 Additional Labs: Accuchecks 08/06/19 08/06/19 08/06/19 16:33 12:20 04:30 POC Glucose 139 H 169 H 229 H 08/05/19 20:16 POC Glucose 269 H Hospitalist ROS - Review of Systems Cardiovascular: denies: chest pain, palpitations, orthopnea, paroxysmal noc. dyspnea, edema, light headedness, other Gastrointestinal: denies: nausea, vomiting, abdominal pain, diarrhea, constipation, melena, hematochezia, other Genitourinary: denies: dysuria, frequency, incontinence, hematuria, retention, other - Medication Medications: Active Medications Generic Name Dose Route Start Last Admin Trade Name Freq PRN Reason Stop Dose Admin Hydrocodone Bitart/Acetaminophen 1 tab 08/05/19 16:59 08/06/19 17:34 [place] 10/325 PO 1 tab Q4H PRN Administration Moderate to Severe Pain (6-10) Clonazepam 0.5 mg 08/04/19 21:00 08/06/19 16:42 Klonopin PO 0.5 mg QID PATITO Administration Enoxaparin Sodium 40 mg 08/04/19 21:00 08/05/19 20:41 Lovenox SC 40 mg 2100 PATITO Administration Famotidine 20 mg 08/04/19 21:00 08/06/19 09:02 Pepcid PO 20 mg BID PATITO Administration Glipizide 5 mg 08/06/19 16:30 08/06/19 16:42 Glucotrol PO 5 mg BID-AC PATITO Administration Cefepime HCl 1 gm/ Sodium 100 mls @ 200 mls/hr 08/05/19 05:00 08/06/19 16:42 Chloride IVPB 100 mls 0500,1700 PATITO Administration Vancomycin HCl 1.75 gm/ Sodium 500 mls @ 250 mls/hr 08/05/19 20:00 08/06/19 12:03 Chloride IVPB 500 mls 0400,1200,2000 PATITO Administration Insulin Human Isoph/Insulin Regular 10 units 08/06/19 09:00 08/06/19 11:05 Humulin 70/30 SC 10 unit BID PATITO Administration Metformin HCl 500 mg 08/05/19 17:00 08/06/19 16:42 Glucophage PO 500 mg BID-WM PATITO Administration Metoprolol Tartrate 50 mg 08/05/19 21:00 08/06/19 09:02 Lopressor PO 50 mg BID PATITO Administration Morphine Sulfate 2 mg 08/05/19 16:53 08/05/19 17:13 Morphine SLOW IVP 2 mg Q4H PRN Administration Moderate to Severe Pain (6-10) Nicotine 14 mg 08/04/19 21:00 08/05/19 23:42 Nicoderm Patch TD Not Given Q24HR [facility] Polyethylene Glycol 17 gm 08/06/19 09:00 08/06/19 09:03 Miralax PO 17 gm DAILY PATITO Administration Risperidone 2 mg 08/05/19 21:00 08/05/19 20:41 Risperidone PO 2 mg HS PATITO Administration Tramadol HCl 50 mg 08/05/19 11:06 08/05/19 13:50 Ultram PO 50 mg Q4H PRN Administration Moderate Pain (4-6) Venlafaxine HCl 300 mg 08/05/19 09:00 08/06/19 09:02 Effexor Xr PO 300 mg DAILY PATITO Administration - Exam Heart: negative: RRR, no murmur, no gallops, no rubs, normal peripheral pulses, irregular, diminshed peripheral pulses, murmur present, II/IV, III/IV Respiratory: negative: CTAB, no wheezes, no rales, no ronchi, normal chest expansion, no tachypnea, normal percussion, rales, rhonchi, tachypneic, wheezes Gastrointestinal: negative: soft, non-tender, non-distended, normal bowel sounds , no palpable masses, no hepatomegaly, no splenomegaly, no bruit, no guarding, no rigidity, tender to palpation, distended, diminished bowl sounds, voluntary guarding Hosp A/P (1) Ulcer of right foot due to type 2 diabetes mellitus Code(s): E11.621 - TYPE 2 DIABETES MELLITUS WITH FOOT ULCER; L97.519 - NON-PRS CHRONIC ULCER OTH PRT RIGHT FOOT W UNSP SEVERITY Status: Acute (2) Anxiety and depression Code(s): F41.8 - OTHER SPECIFIED ANXIETY DISORDERS Status: Chronic (3) DM type 2 (diabetes mellitus, type 2) Status: Chronic Qualifiers: Diabetes mellitus snf insulin use: without snf use (4) HTN (hypertension) Code(s): I10 - ESSENTIAL (PRIMARY) HYPERTENSION Status: Chronic Qualifiers: Hypertension type: essential hypertension Qualified Code(s): I10 - Essential (primary) hypertension (5) Obesity (BMI 30-39.9) Code(s): E66.9 - OBESITY, UNSPECIFIED Status: Chronic (6) Bipolar 1 disorder Code(s): F31.9 - BIPOLAR DISORDER, UNSPECIFIED Status: Acute - Plan s/p amputation of right great toe and metatarsal on 08/04, pt still on abx. will await path. wound vac in place. insulin added for better blood sugar control.
[2019-08-06 19:22] LABS: Vancomycin, Trough 18.7 ug/mL
[2019-08-06] MEDS ORDERED: BENZTROPINE MESYLATE 0.5 MG PO SCH (21:00)
[2019-08-06] MEDS: Enoxaparin Sodium 40 MG/0.4 ML SYRINGE SC SCH (21:57)
[2019-08-06] MEDS: risperiDONE 1 MG TAB PO SCH (21:58)
[2019-08-06] MEDS: Benztropine 1 MG TAB PO SCH (21:58)
[2019-08-06] MEDS: Nicotine 14 MG PATCH TD SCH (21:58)
[2019-08-07] MEDS: Vancomycin HCl 1.75 GM in Sodium Chloride 0.9% 500 ML IVPB SCH ×2 (04:28→12:02)
[2019-08-07] MEDS: Cefepime 1 GM in Sodium Chloride 0.9% 100 ML IVPB SCH (04:28)
[2019-08-07] MEDS: glipiZIDE 5 MG TAB PO SCH ×2 (08:28→16:33)
[2019-08-07] MEDS: Famotidine 20 MG TAB PO SCH ×2 (08:28→20:46)
[2019-08-07] MEDS: metFORMIN 500 MG TAB PO SCH ×2 (08:28→16:33)
[2019-08-07] MEDS: clonazePAM 0.5 MG TAB PO SCH ×4 (08:28→20:49)
[2019-08-07] MEDS: Metoprolol Tartrate 50 MG TAB PO SCH ×2 (08:29→20:45)
[2019-08-07] MEDS: Venlafaxine HCl XR 150 MG CAP PO SCH (08:29)
[2019-08-07] MEDS: Polyethylene Glycol 3350 17 GM Packet PO SCH (08:30)
[2019-08-07] MEDS: HumuLIN 70/30 (300 UNITS/3 ML VIAL) SC SCH ×2 (08:31→20:50)
[2019-08-07] MEDS: HYDROcodone/Acetaminophen 10/325 mg Tablet PO PRN ×2 (08:39→20:49)
[2019-08-07] MEDS: cefTRIAXone\\ROCEPHIN 1 GM in Sodium Chloride 0.9% 100 ML IVPB SCH (08:40)
--- NOTE | 2019-08-07 14:10 | PDOC.HOSPP ---
- Subjective Encounter Date: 08/07/19 Encounter Time: 13:00 Subjective: pt up in bed no complains - Objective Vital Signs & Weight: Vital Signs (12 hours) Temp Pulse Resp BP Pulse Ox 08/07/19 11:23 98.4 F 61 18 144/84 H 95 08/07/19 07:45 98.8 F 64 18 137/81 93 L Weight Admit Weight 226 lb Weight 226 lb I&O: 08/06/19 08/07/19 08/08/19 06:59 06:59 06:59 Intake Total 1600 1475 360 Output Total 525 Balance 1600 950 360 Result Diagrams: 08/05/19 05:20 08/05/19 05:20 Additional Labs: Accuchecks 08/07/19 08/07/19 08/06/19 11:27 04:44 20:33 POC Glucose 168 H 134 H 124 H 08/06/19 16:33 POC Glucose 139 H Hospitalist ROS - Review of Systems Cardiovascular: denies: chest pain, palpitations, orthopnea, paroxysmal noc. dyspnea, edema, light headedness, other Gastrointestinal: denies: nausea, vomiting, abdominal pain, diarrhea, constipation, melena, hematochezia, other Genitourinary: denies: dysuria, frequency, incontinence, hematuria, retention, other - Medication Medications: Active Medications Generic Name Dose Route Start Last Admin Trade Name Freq PRN Reason Stop Dose Admin Hydrocodone Bitart/Acetaminophen 1 tab 08/05/19 16:59 08/07/19 08:39 [place] 10/325 PO 1 tab Q4H PRN Administration Moderate to Severe Pain (6-10) Benztropine Mesylate 0.5 mg 08/06/19 21:00 08/06/19 21:58 Cogentin PO 0.5 mg HS PATITO Administration Clonazepam 0.5 mg 08/04/19 21:00 08/07/19 12:03 Klonopin PO 0.5 mg QID PATITO Administration Enoxaparin Sodium 40 mg 08/04/19 21:00 08/06/19 21:57 Lovenox SC 40 mg 2100 PATITO Administration Famotidine 20 mg 08/04/19 21:00 08/07/19 08:28 Pepcid PO 20 mg BID PATITO Administration Glipizide 5 mg 08/06/19 16:30 08/07/19 08:28 Glucotrol PO 5 mg BID-AC PATITO Administration Vancomycin HCl 1.75 gm/ Sodium 500 mls @ 250 mls/hr 08/05/19 20:00 08/07/19 12:02 Chloride IVPB 500 mls 0400,1200,2000 PATITO Administration Ceftriaxone Sodium 1 gm/ 100 mls @ 200 mls/hr 08/07/19 08:00 08/07/19 08:40 Sodium Chloride IVPB 100 mls Q24HR PATITO Administration Insulin Human Isoph/Insulin Regular 10 units 08/06/19 09:00 08/07/19 08:31 Humulin 70/30 SC 10 unit BID PATITO Administration Metformin HCl 500 mg 08/05/19 17:00 08/07/19 08:28 Glucophage PO 500 mg BID-WM PATITO Administration Metoprolol Tartrate 50 mg 08/05/19 21:00 08/07/19 08:29 Lopressor PO 50 mg BID PATITO Administration Morphine Sulfate 2 mg 08/05/19 16:53 08/05/19 17:13 Morphine SLOW IVP 2 mg Q4H PRN Administration Moderate to Severe Pain (6-10) Nicotine 14 mg 08/04/19 21:00 08/06/19 21:58 Nicoderm Patch TD Not Given Q24HR [facility] Polyethylene Glycol 17 gm 08/06/19 09:00 08/07/19 08:30 Miralax PO Not Given DAILY [facility] Risperidone 2 mg 08/05/19 21:00 08/06/19 21:58 Risperidone PO 2 mg HS PATITO Administration Tramadol HCl 50 mg 08/05/19 11:06 08/05/19 13:50 Ultram PO 50 mg Q4H PRN Administration Moderate Pain (4-6) Venlafaxine HCl 300 mg 08/05/19 09:00 08/07/19 08:29 Effexor Xr PO 300 mg DAILY PATITO Administration - Exam Neck: negative: supple, symmetric, no JVD, no thyromegaly, no lymphadenopathy, no carotid bruit, JVD Heart: negative: RRR, no murmur, no gallops, no rubs, normal peripheral pulses, irregular, diminshed peripheral pulses, murmur present, II/IV, III/IV Respiratory: negative: CTAB, no wheezes, no rales, no ronchi, normal chest expansion, no tachypnea, normal percussion, rales, rhonchi, tachypneic, wheezes Gastrointestinal: negative: soft, non-tender, non-distended, normal bowel sounds , no palpable masses, no hepatomegaly, no splenomegaly, no bruit, no guarding, no rigidity, tender to palpation, distended, diminished bowl sounds, voluntary guarding Hosp A/P (1) Ulcer of right foot due to type 2 diabetes mellitus Code(s): E11.621 - TYPE 2 DIABETES MELLITUS WITH FOOT ULCER; L97.519 - NON-PRS CHRONIC ULCER OTH PRT RIGHT FOOT W UNSP SEVERITY Status: Acute (2) Anxiety and depression Code(s): F41.8 - OTHER SPECIFIED ANXIETY DISORDERS Status: Chronic (3) DM type 2 (diabetes mellitus, type 2) Status: Chronic Qualifiers: Diabetes mellitus rat exterminator insulin use: without rat exterminator use (4) HTN (hypertension) Code(s): I10 - ESSENTIAL (PRIMARY) HYPERTENSION Status: Chronic Qualifiers: Hypertension type: essential hypertension Qualified Code(s): I10 - Essential (primary) hypertension (5) Obesity (BMI 30-39.9) Code(s): E66.9 - OBESITY, UNSPECIFIED Status: Chronic (6) Bipolar 1 disorder Code(s): F31.9 - BIPOLAR DISORDER, UNSPECIFIED Status: Acute - Plan s/p amputation of right great toe and metatarsal on 08/04, pt still on abx. will await path. wound vac in place. insulin added for better blood sugar control. 08/06 pt's right foot cx indicates staph and strep. will get ID for abx guidance. will continue iv abx for now. He will need wound vac before discharge.
[2019-08-07] MEDS: risperiDONE 1 MG TAB PO SCH (20:45)
[2019-08-07] MEDS: Benztropine 1 MG TAB PO SCH (20:45)
[2019-08-07] MEDS: Vancomycin 1.5 GRAM/300 ML BAG 1.5 GM in Premix Bag 1 BAG IVPB SCH (20:45)
[2019-08-07] MEDS: Enoxaparin Sodium 40 MG/0.4 ML SYRINGE SC SCH (20:46)
[2019-08-07] MEDS: Nicotine 14 MG PATCH TD SCH (20:50)
--- NOTE | 2019-08-07 23:18 | CON ---
DATE OF CONSULTATION: REASON FOR CONSULTATION: Right foot inflammatory changes. HISTORY OF PRESENT ILLNESS: A 59-year-old, history of type 2 diabetes, neuropathy as well as hyperlipidemia and hypertension, who was admitted in January 2019 with a foreign body in the right foot. At that time, Dr. Sanders did an incision and removal of deep foreign body in the right foot. This was located in the plantar aspect of the right hallux where there was a large plantar ulceration, so there was a 5 mm foreign body, which is black and corroded. This was sent for pathology evaluation and the pathologist report showed foreign material with benign fibroconnective tissue and mild chronic inflammatory changes. The patient developed worsening inflammatory changes in the same site involving the first toe of the right foot and eventually ended up coming to the emergency room. The only positive finding in the review of systems on admission was the foot changes. Other symptoms were not present. His initial findings included a pulse 103, an O2 saturation 99%, and temperature 99.5. The exam was remarkable for the swelling of the right foot, particularly the right first ray; the deep ulceration at the base of the first MTP as well as ulcerations on the lateral aspect of the great toe, erythema progressing to the midfoot area. The x-ray did not show any bone changes, but there was penetration all the way to the bone and he underwent amputation of the first ray by Dr. Carias. The operative report was reviewed and it was basically a simple amputation right great toe. Good blood supply was noted. Currently, Mr. Swenson is awake. He is awake in the fourth floor. He does not appear in distress, a little bit apathetic, not very responsive; sometimes I had to insist a few times to get an answer from him. He denied any headaches. No visual symptoms, sore throat, odynophagia, or dysphagia. No dyspnea or cough. No chest pain. No abdominal pain or diarrhea. Voiding without difficulty and no bleeding. much pain in the right foot, probably from neuropathy. PAST MEDICAL HISTORY: Type 2 diabetes, hypertension, hyperlipidemia, foreign body in the right foot, managed in January 2019, a persisting wound at the bottom of the first MPJ, which led to this outcome now. He has a history of depression and anxiety. SOCIAL HISTORY: Current smoker. Lives in [place] by himself. No other drug use. ALLERGIES: NONE. CURRENT MEDICATIONS: P.r.n. medications; 1. Cogentin. 2. Ceftriaxone. 3. Klonopin. 4. Lovenox. 5. Pepcid. 6. Glucotrol. 7. Motrin. 8. Insulin. 9. Lopressor. 10. Risperdal. 11. Ultram. 12. Vancomycin. 13. Venlafaxine. PHYSICAL EXAMINATION: VITAL SIGNS: T-max 99.5, BP 140/84, pulse 61, respirations 18, and O2 saturation 95%. SKIN: Exam with the area of amputation, there is a negative pressure dressing applied to the site and there is erythema surrounding the area of amputation. The patient has a peripheral IV access. No lymphadenopathy. GENERAL: Disheveled appearing. HEENT: Ocular movements conjugate. Pupils are equal. Oral cavity with almost no mary's igloo teeth remaining. Oral mucosa appears normal. NECK: Supple. No jugular vein distention. LUNGS: Symmetric. Clear breath sounds. HEART: S1 and S2. Regular rate. No S3 or S4. ABDOMEN: Soft, not distended or tender. No ascites. No bladder distention. EXTREMITIES: No other joint inflammatory process. Pulses are 1+ in dorsalis pedis. Cap refill normal. NEUROLOGIC: Seems to have a nonfocal neuro examination. He is bit apathetic, did not seem to have any delusional thinking process. His hearing appeared to be intact. LABORATORY DATA: White cell count 10.7 and 8.2, hemoglobin 12.3 and 11, MCV 91, platelets 334 with 62% neutrophils. Sodium 130, creatinine 0.82. Liver profile normal. Albumin 3.3, protein 8.4. Microbiology with group B strep and Staph aureus, pending susceptibilities. Blood culture, no growth in 48 hours. Pathology of the surgical specimen is pending. ASSESSMENT: Type 2 diabetes, neuropathy, recent foreign body removed, now with a chronic ulcer, which led to this outcome with amputation of the first ray. The patient has good vascular supply. The organism seem to be amenable to oral antimicrobial therapy, so eventually once we have the final susceptibility results, we will plan discharge on oral, probably combination of either Cipro plus rifampin or Keflex and rifampin, duration of probably at least 2 weeks. Frequently those lesions tend to become reinfected leading to readmissions. I tend to therefore extend the oral antimicrobial therapy for longer than just a few days in an attempt to decrease the rate of relapse of the inflammatory process. Job ID: [id number] MTDD
[2019-08-08] MEDS: Vancomycin 1.5 GRAM/300 ML BAG 1.5 GM in Premix Bag 1 BAG IVPB SCH ×3 (05:31→21:46)
[2019-08-08] MEDS: HYDROcodone/Acetaminophen 10/325 mg Tablet PO PRN ×3 (05:40→20:18)
[2019-08-08] MEDS: Venlafaxine HCl XR 150 MG CAP PO SCH (07:48)
[2019-08-08] MEDS: Metoprolol Tartrate 50 MG TAB PO SCH ×2 (07:48→21:46)
[2019-08-08] MEDS: metFORMIN 500 MG TAB PO SCH ×2 (07:48→17:02)
[2019-08-08] MEDS: cefTRIAXone\\ROCEPHIN 1 GM in Sodium Chloride 0.9% 100 ML IVPB SCH (07:48)
[2019-08-08] MEDS: clonazePAM 0.5 MG TAB PO SCH ×4 (07:48→21:49)
[2019-08-08] MEDS: glipiZIDE 5 MG TAB PO SCH ×2 (07:48→17:02)
[2019-08-08 07:49] LABS: #Eosinphils 0.2 thou/uL (0.0-0.7); #Lymphocytes 2.2 thou/uL (1.20-3.40); #Monocytes 0.7 thou/uL (0.11-0.59); #Neutrophils 4.9 thou/uL (1.40-6.50); %Lymphocytes 27.7 % (21.0-51.0); %Monocytes 8.1 % (0.0-10.0); %Neutrophils 61.2 % (42.0-75.0); Hemoglobin 10.3 g/dL (14.0-18.0); Mean Corpuscular Hemoglobin 30.3 pg (27.0-31.0); Mean Corpuscular Volume 91.7 fL (78.0-98.0); Mean Platelet Volume 6.9 fL (7.4-10.4); Platelet Count 335 thou/uL (130-400); RBC Distribution Width 12.2 % (11.5-14.5); Red Blood Cell (RBC) Count 3.39 mill/uL (4.70-6.10)
[2019-08-08] MEDS: Famotidine 20 MG TAB PO SCH ×2 (07:49→21:48)
[2019-08-08] MEDS: HumuLIN 70/30 (300 UNITS/3 ML VIAL) SC SCH (07:52)
[2019-08-08] MEDS: Polyethylene Glycol 3350 17 GM Packet PO SCH (07:53)
[2019-08-08 08:08] LABS: Anion Gap 11 mmol/L (10-20); BUN (Urea Nitrogen) 7 mg/dL (8.4-25.7); Calc. Creatinine Clearance 158 mL/min (70-130); Calcium 8.2 mg/dL (7.8-10.44); Carbon Dioxide 27 mmol/L (22-29); Chloride 102 mmol/L (98-107); Estimated GFR-MDRD Greater than 90; Glucose 198 mg/dL (70-105); Potassium 3.8 mmol/L (3.5-5.1); Sodium 136 mmol/L (136-145)
[2019-08-08] MEDS: Morphine 2 MG/ML SYRINGE SLOW IVP PRN (11:18)
--- NOTE | 2019-08-08 13:33 | PRG ---
DATE OF SERVICE: 08/08/2019 Mr. Swenson is doing well after amputation of his right great toe on 08/05/2019. The wound looks good. VAC is changed. At home, he can weightbear as tolerated. Wear orthotic shoes when he is out of bed. He can wash the wound with soap and water in the shower or bath. Wound VAC is changed and will need to be seen in my office in 2 to 3 weeks. Outpatient wound care, [facility] appointments have been made. Anticipate discharge later today. Cultures demonstrated Strep and MRSA. MRSA is sensitive to clindamycin, Rifampin. Dr. Cifuentes has seen him. The patient can probably be transitioned to Cipro plus Rifampin or Keflex and Rifampin for [address] Cifuentes' recommendation. At this point, I will see him as needed in this hospitalization. He can follow up with me as an outpatient. The patient is stable for discharge at any point. He can wear the orthotic shoe when he is out of bed. Weight bear as tolerated. Job ID: [id number]
--- NOTE | 2019-08-08 15:36 | PDOC.HOSPP ---
- Subjective Encounter Date: 08/08/19 Encounter Time: 10:00 Subjective: pt up in bed getting his wound vac changed - Objective Vital Signs & Weight: Vital Signs (12 hours) Temp Pulse Resp BP Pulse Ox 08/08/19 08:52 97.7 F 69 18 146/82 H 95 Weight Admit Weight 226 lb Weight 226 lb I&O: 08/07/19 08/08/19 08/09/19 06:59 06:59 06:59 Intake Total 1475 3510 1480 Output Total 525 2965 850 Balance 950 545 630 Result Diagrams: 08/08/19 07:35 08/08/19 07:35 Additional Labs: Accuchecks 08/08/19 08/08/19 08/07/19 11:41 05:38 20:10 POC Glucose 67 L 172 H 173 H 08/07/19 16:33 POC Glucose 96 Hospitalist ROS - Review of Systems Cardiovascular: denies: chest pain, palpitations, orthopnea, paroxysmal noc. dyspnea, edema, light headedness, other Gastrointestinal: denies: nausea, vomiting, abdominal pain, diarrhea, constipation, melena, hematochezia, other Genitourinary: denies: dysuria, frequency, incontinence, hematuria, retention, other - Medication Medications: Active Medications Generic Name Dose Route Start Last Admin Trade Name Freq PRN Reason Stop Dose Admin Hydrocodone Bitart/Acetaminophen 1 tab 08/05/19 16:59 08/08/19 09:26 [place] 10/325 PO 1 tab Q4H PRN Administration Moderate to Severe Pain (6-10) Benztropine Mesylate 0.5 mg 08/06/19 21:00 08/07/19 20:45 Cogentin PO 0.5 mg HS PATITO Administration Clonazepam 0.5 mg 08/04/19 21:00 08/08/19 12:19 Klonopin PO 0.5 mg QID PATITO Administration Enoxaparin Sodium 40 mg 08/04/19 21:00 08/07/19 20:46 Lovenox SC 40 mg 2100 PATITO Administration Famotidine 20 mg 08/04/19 21:00 08/08/19 07:49 Pepcid PO 20 mg BID PATITO Administration Glipizide 5 mg 08/06/19 16:30 08/08/19 07:48 Glucotrol PO 5 mg BID-AC PATITO Administration Ceftriaxone Sodium 1 gm/ 100 mls @ 200 mls/hr 08/07/19 08:00 08/08/19 07:48 Sodium Chloride IVPB 100 mls Q24HR PATITO Administration Vancomycin HCl 1.5 gm/ Device 300 mls @ 200 mls/hr 08/07/19 20:00 08/08/19 11 :24 IVPB 300 mls 0400,1200,2000 PATITO Administration Insulin Human Isoph/Insulin Regular 10 units 08/06/19 09:00 08/08/19 07:52 Humulin 70/30 SC 10 unit BID PATITO Administration Metformin HCl 500 mg 08/05/19 17:00 08/08/19 07:48 Glucophage PO 500 mg BID-WM PATITO Administration Metoprolol Tartrate 50 mg 08/05/19 21:00 08/08/19 07:48 Lopressor PO 50 mg BID PATITO Administration Morphine Sulfate 2 mg 08/05/19 16:53 08/08/19 11:18 Morphine SLOW IVP 2 mg Q4H PRN Administration Moderate to Severe Pain (6-10) Nicotine 14 mg 08/04/19 21:00 08/07/19 20:50 Nicoderm Patch TD Not Given Q24HR [facility] Polyethylene Glycol 17 gm 08/06/19 09:00 08/08/19 07:53 Miralax PO Not Given DAILY [facility] Risperidone 2 mg 08/05/19 21:00 08/07/19 20:45 Risperidone PO 2 mg HS PATITO Administration Tramadol HCl 50 mg 08/05/19 11:06 08/05/19 13:50 Ultram PO 50 mg Q4H PRN Administration Moderate Pain (4-6) Venlafaxine HCl 300 mg 08/05/19 09:00 08/08/19 07:48 Effexor Xr PO 300 mg DAILY PATITO Administration - Exam Heart: negative: RRR, no murmur, no gallops, no rubs, normal peripheral pulses, irregular, diminshed peripheral pulses, murmur present, II/IV, III/IV Respiratory: negative: CTAB, no wheezes, no rales, no ronchi, normal chest expansion, no tachypnea, normal percussion, rales, rhonchi, tachypneic, wheezes Gastrointestinal: negative: soft, non-tender, non-distended, normal bowel sounds , no palpable masses, no hepatomegaly, no splenomegaly, no bruit, no guarding, no rigidity, tender to palpation, distended, diminished bowl sounds, voluntary guarding Skin - other findings: right toe wrapped Hosp A/P (1) Ulcer of right foot due to type 2 diabetes mellitus Code(s): E11.621 - TYPE 2 DIABETES MELLITUS WITH FOOT ULCER; L97.519 - NON-PRS CHRONIC ULCER OTH PRT RIGHT FOOT W UNSP SEVERITY Status: Acute (2) Anxiety and depression Code(s): F41.8 - OTHER SPECIFIED ANXIETY DISORDERS Status: Chronic (3) DM type 2 (diabetes mellitus, type 2) Status: Chronic Qualifiers: Diabetes mellitus supervisor intermediates insulin use: without jail use (4) HTN (hypertension) Code(s): I10 - ESSENTIAL (PRIMARY) HYPERTENSION Status: Chronic Qualifiers: Hypertension type: essential hypertension Qualified Code(s): I10 - Essential (primary) hypertension (5) Obesity (BMI 30-39.9) Code(s): E66.9 - OBESITY, UNSPECIFIED Status: Chronic (6) Bipolar 1 disorder Code(s): F31.9 - BIPOLAR DISORDER, UNSPECIFIED Status: Acute - Plan s/p amputation of right great toe and metatarsal on 08/04, pt still on abx. will await path. wound vac in place. insulin added for better blood sugar control. 08/06 pt's right foot cx indicates staph and strep. will get ID for abx guidance. will continue iv abx for now. He will need wound vac before discharge. 08/07 watch case polisher asked for set up once all equipment set up pt can be discharged home. will go home with cipro/keflex with rifampin. will stop humulin since his blood sugars are now controlled. will change ceftriaxone to keflex.
[2019-08-08] MEDS ORDERED: HumuLIN 70/30 (300 UNITS/3 ML VIAL) SC SCH (15:44)
--- NOTE | 2019-08-08 16:29 | PRG ---
DATE OF SERVICE: 08/08/2019 SUBJECTIVE: Mr. Swenson is having pain because the wound VAC dressing was changed today. No shortness of breath or cough. No abdominal pain or diarrhea. He is voiding in the urinal. Vital signs are essentially normal, slight elevation of systolic blood pressure. PHYSICAL EXAMINATION: LUNGS: Showed clear. HEART: S1 and S2 regular rate. ABDOMEN: Soft. EXTREMITIES: Foot dressed with negative pressure dressing. LABORATORY DATA: White blood cell count 8.0, hemoglobin 10, and platelets 335. Creatinine 0.74. Microbiology; we have group B strep and MRSA. The MRSA is susceptible to clindamycin, rifampin, Bactrim, but resistant to tetracycline. The pathology of the specimen showed viable surgical margin, negative for acute inflammation at the margin. ASSESSMENT AND DISCUSSION: Type 2 diabetes, neuropathy, foreign body removed recently a few months ago, now with a chronic ulcer, which led to persistence of infection and amputation of first ray, margin is good, vascular supply is good as well. I would consider transitioning to clindamycin 300 mg 4 times daily for at least 3 weeks. Follow up in the outpatient setting. While he is in the hospital, I would not remain on the vancomycin, but before discharge planning, clindamycin which would cover both organisms. Job ID: [id number]
[2019-08-08] MEDS: Cephalexin 250 MG CAP PO SCH ×2 (17:03→21:52)
[2019-08-08 19:49] LABS: Vancomycin, Trough 15.3 ug/mL
[2019-08-08] MEDS: Nicotine 14 MG PATCH TD SCH (20:30)
[2019-08-08] MEDS: Benztropine 1 MG TAB PO SCH (21:47)
[2019-08-08] MEDS: risperiDONE 1 MG TAB PO SCH (22:51)
[2019-08-08] MEDS: Enoxaparin Sodium 40 MG/0.4 ML SYRINGE SC SCH (22:51)
[2019-08-09] MEDS: Vancomycin 1.5 GRAM/300 ML BAG 1.5 GM in Premix Bag 1 BAG IVPB SCH (04:35)
[2019-08-09] MEDS: HYDROcodone/Acetaminophen 10/325 mg Tablet PO PRN ×2 (07:38→16:24)
[2019-08-09] MEDS: Venlafaxine HCl XR 150 MG CAP PO SCH (08:57)
[2019-08-09] MEDS: metFORMIN 500 MG TAB PO SCH ×2 (08:57→16:20)
[2019-08-09] MEDS: Metoprolol Tartrate 50 MG TAB PO SCH ×2 (08:57→20:52)
[2019-08-09] MEDS: Cephalexin 250 MG CAP PO SCH (08:57)
[2019-08-09] MEDS: glipiZIDE 5 MG TAB PO SCH ×2 (08:57→16:20)
[2019-08-09] MEDS: clonazePAM 0.5 MG TAB PO SCH ×4 (08:57→20:52)
[2019-08-09] MEDS: Famotidine 20 MG TAB PO SCH ×2 (08:58→20:57)
[2019-08-09] MEDS: Polyethylene Glycol 3350 17 GM Packet PO SCH (08:58)
[2019-08-09] MEDS: Clindamycin 150 MG CAP PO SCH ×3 (10:46→22:50)
[2019-08-09] MEDS: Nicotine 14 MG PATCH TD SCH (20:34)
[2019-08-09] MEDS: Benztropine 1 MG TAB PO SCH (20:51)
[2019-08-09] MEDS: risperiDONE 1 MG TAB PO SCH (20:52)
[2019-08-09] MEDS: Enoxaparin Sodium 40 MG/0.4 ML SYRINGE SC SCH (20:53)
--- NOTE | 2019-08-10 02:56 | DIS ---
DATE OF ADMISSION: 08/04/2019 DATE OF DISCHARGE: 08/09/2019 DISCHARGE DIAGNOSES: As of the followin. Right foot ulcer secondary to diabetes. 2. Anxiety and depression. 3. Diabetes. 4. Hypertension. 5. Obesity. 6. Bipolar 1 disorder. HOSPITAL COURSE: The patient is a 59-year-old male, who underwent an amputation of the right great toe and metatarsal on 08/04. He initially was put on broad-spectrum antibiotics. He had a wound VAC. His cultures grew strep agalactiae and methicillin-resistant Staph aureus. At this time, the patient was seen by Infectious Disease and was put on oral antibiotics. The patient has been educated on not touching the wound VAC and he will follow up with home health. HOME MEDICATIONS: 1. Clindamycin 200 mg q.6 hours for three weeks. 2. Lisinopril which I have added new and I explained to him 20 mg daily. 3. Florastor 250 mg daily. 4. Risperdal 2 mg at bedtime. 5. Clonazepam 0.5 q.i.d. 6. Metformin 500 mg b.i.d. with meals. 7. Benztropine 0.5 at bedtime. 8. Metoprolol 50 mg twice a day. 9. Venlafaxine 150 mg twice a day. 10. Ultram 50 mg q.8 hours p.r.n. 11. Multivitamin. PHYSICAL EXAMINATION: VITAL SIGNS: On discharge, 98.5 18, 95% on room air, 153/81. GENERAL: He is awake, alert, and oriented x3. Does not appear in distress. CV: S1, S2 present. No murmurs, rubs, or gallops. ABDOMEN: Soft, nontender. Bowel sounds present x2. He will be discharged home. He will follow up with his primary and also with Surgery. Job ID: [id number]
[2019-08-10] MEDS: Clindamycin 150 MG CAP PO SCH ×2 (05:00→11:04)
[2019-08-10] MEDS: HYDROcodone/Acetaminophen 10/325 mg Tablet PO PRN ×2 (07:18→14:41)
[2019-08-10] MEDS: clonazePAM 0.5 MG TAB PO SCH ×2 (08:26→12:40)
[2019-08-10] MEDS: Metoprolol Tartrate 50 MG TAB PO SCH (08:26)
[2019-08-10] MEDS: glipiZIDE 5 MG TAB PO SCH (08:26)
[2019-08-10] MEDS: Venlafaxine HCl XR 150 MG CAP PO SCH (08:26)
[2019-08-10] MEDS: metFORMIN 500 MG TAB PO SCH (08:27)
[2019-08-10] MEDS: Polyethylene Glycol 3350 17 GM Packet PO SCH (08:27)
[2019-08-10] MEDS ORDERED: Saccharomyces boulardii 250 MG CAP PO SCH (09:00)
[2019-08-10] MEDS: Famotidine 20 MG TAB PO SCH (09:58)
[2019-08-10 16:41] VITALS: BP 144/84; TEMP 98
--- NOTE | 2019-08-12 04:34 | PQF ---
[employer] Policy Specialist Crystal Reports Winform Viewer JOHANA LUNDY ANITA JIM [id number] CLINICAL DOCUMENTATION CLARIFICATION FORM: POST DISCHARGE Addendum to original discharge summary date: ____ Late entry note date: __ DATE: 08/12/19 ATTN: Jim Enriquez Please exercise your independent, professional judgment in responding to the clarification form. Clinical indicators are provided on the bottom of this form for your review Can you please further clarify the diagnosis of the patient? Please check appropriate box(es): [ ] Sepsis [ ] SIRS due to non-infectious process (please specify etiology) [ ] with organ dysfunction [ ] without organ dysfunction [ ] Localized infection without sepsis [ ] Other diagnosis please specify [ ] Unable to determine In addition, please specify: Present on Admission (POA): [ ] Yes [ ] No [ ] Unable to determine For continuity of documentation, please document condition throughout progress notes and discharge summary. Thank You. CLINICAL INDICATORS - SIGNS / SYMPTOMS / LABS ED Provider pg.3- SIRS H and P pg.1- he was tachycardic with heart rate of 02 ED Provider pg.2- VS: BP 154/84, pulse 102, temp 99.5, Respi [address] Carias pg.2- necrotizing infection PN 08/07 pg.1- cultures demonstrate Strep and MRSA. MRSA is sensitive to clindamycin DS pg.1- Right foot ulcer 2/2 Diabetes Labs WBC: 08/03=10.7 08/04=8.2 08/07=8.0 Labs Lactate: 08/03=1.4 Collected 08/03 Blood culture:no growth WBC count (>12,000/mm^4 or <4000/mm^3 or 10% neuts, 10% bands) RISK FACTORS Diabetic foot infection- H and P pg.1 HTN- H and P pg.1 HLD- H and P pg.1 Smoker- H and P pg.1 Obesity- DS pg.1 Cellulitis and abscess right foot- OP report pg.1 TREATMENTS: Infectious Consult Dr. Cifuentes 08/06 Amputation of right grate toe- OP report 08/04 IV fluids- APR Foot X ray 08/03 Bacterial culture- Microbiology Rocephin 1gm IV-APR 28 Keflex 250mg Oral-APR 28 Clindamycin 300mg Oral-APR 28 (This form is maintained as a part of the permanent medical record) 2014 [employer] All Rights Reserved [email or web address]
== END 2019-08-10 18:03 | disposition home health service (06) | DRG 617 ==
LOC: ERS 14:22 → T4-A 19:27
PROVIDERS: ADMIT Internal Medicine; ATTEND Internal Medicine
PROC: 0Y6P0Z0 Detachment at Right 1st Toe, Complete, Open Approach (ICD-10-PCS; principal; 2019-08-05)
DX: E11.621 Type 2 diabetes mellitus with foot ulcer (principal); E11.52 Type 2 diabetes mellitus with diabetic peripheral angiopathy with gangrene; L03.115 Cellulitis of right lower limb; E87.1 Hypo-osmolality and hyponatremia; I96 Gangrene, not elsewhere classified; L02.611 Cutaneous abscess of right foot; E11.628 Type 2 diabetes mellitus with other skin complications; I10 Essential (primary) hypertension; E78.5 Hyperlipidemia, unspecified; F41.9 Anxiety disorder, unspecified; F31.9 Bipolar disorder, unspecified; E11.65 Type 2 diabetes mellitus with hyperglycemia; E78.1 Pure hyperglyceridemia; F17.210 Nicotine dependence, cigarettes, uncomplicated; L97.519 Non-pressure chronic ulcer of other part of right foot with unspecified severity; E66.9 Obesity, unspecified; E11.40 Type 2 diabetes mellitus with diabetic neuropathy, unspecified; B95.62 Methicillin resistant Staphylococcus aureus infection as the cause of diseases classified elsewhere; B95.1 Streptococcus, group B, as the cause of diseases classified elsewhere; Z79.899 Other long term (current) drug therapy; Z79.84 Long term (current) use of oral hypoglycemic drugs; Z68.33 Body mass index [BMI] 33.0-33.9, adult
CPT/HCPCS: 36415; 36416; 80048; 80053; 80202; 83036; 83605; 85025; 85652; 86140; 87040; 87070; 87077; 87186; 87205; 88307; 93005; 93010; 96365; 96366; 96367; J0692; J0696; J1650; J1815; J2001; J2270; J2405; J2704; J3010; J3370; J3490; J7030; J7050

== ENCOUNTER 2020-12-11 10:44 | Emergency (ER) | payer OTHER ==
[~2020-12-11 10:44] MED LIST: Iopamidol-370 76% 500 ML 1 ML ONE
[2020-12-11] MEDS ORDERED: Famotidine 20 MG TAB ONE (11:31)
[2020-12-11] MEDS ORDERED: Dicyclomine 20 MG TAB ONE (11:31)
[2020-12-11 11:42] LABS: #Eosinphils 0.5 thou/uL (0.0-0.7); #Monocytes 0.8 thou/uL (0.11-0.59); #Neutrophils 4.2 thou/uL (1.40-6.50); %Basophils 0.6 % (0.0-1.0); %Eosinophils 6.1 % (0.0-10.0); %Lymphocytes 26.8 % (21.0-51.0); %Monocytes 10.5 % (0.0-10.0); Hemoglobin 13.2 g/dL (14.0-18.0); Mean Corpuscular HGB CONC 32.6 g/dL (32.0-36.0); Mean Platelet Volume 7.8 fL (7.4-10.4); Platelet Count 230 thou/uL (130-400); RBC Distribution Width 12.4 % (11.5-14.5); White Blood Cell (WBC) Count 7.6 thou/uL (4.8-10.8)
[2020-12-11 12:12] LABS: ALT (SGPT) 29 U/L (8-55); AST (SGOT) 25 U/L (5-34); Alkaline Phosphatase 93 U/L (40-110); Anion Gap 15 mmol/L (10-20); BUN (Urea Nitrogen) 10 mg/dL (8.4-25.7); Bilirubin, Total 1.2 mg/dL (0.2-1.2); Calc. Creatinine Clearance 0 mL/min (70-130); Calcium 9.1 mg/dL (7.8-10.44); Carbon Dioxide 23 mmol/L (22-29); Chloride 102 mmol/L (98-107); Globulin 3.1 g/dL (2.4-3.5); Glucose 142 mg/dL (70-105); Lipase 15 U/L (8-78); Potassium 4.5 mmol/L (3.5-5.1); Protein, Total 7.1 g/dL (6.0-8.3); Sodium 135 mmol/L (136-145)
[2020-12-11 12:30] LABS: Bilirubin Negative (Negative); Blood, Urine Negative (Negative); Clarity Clear (Clear); Glucose, Urine (Dipstick) Normal (Negative); Ketone, Urine Negative (Negative); Leukocyte Negative Leu/uL (Negative); Nitrite Negative (Negative); Protein, Urine (Dipstick) Negative (Neg-Trace); Specific Gravity, Urine 1.005 (1.002-1.036); Urobilinogen Normal mg/dL (Less than 2); pH, Urine 7.5 (5.0-9.0)
[2020-12-11 12:39] LABS: Amphetamine Detected (NotDetected); Barbiturates Screen Not Detected (NotDetected); Benzodiazepine Screen Not Detected (NotDetected); Cocaine Metabolite Screen Not Detected (NotDetected); Methadone Not Detected (NotDetected); Methamphetamine Detected (NotDetected); Opiate Screen Not Detected (NotDetected); Oxycodone Screen Not Detected (NotDetected); Phencyclidine (PCP) Not Detected (NotDetected); THC/Cannabinoid Screen Not Detected (NotDetected); Tricyclic Screen Not Detected (NotDetected)
[2020-12-11] MEDS ORDERED: Ampicillin/Sulbactam 3 GM in Sodium Chloride 0.9% 100 ML IVPB SCH (14:15)
== END 2020-12-11 15:35 | disposition home or self-care (01) ==
LOC: ERS 10:44
DX: K57.32 Diverticulitis of large intestine without perforation or abscess without bleeding (principal); R33.9 Retention of urine, unspecified; R39.198 Other difficulties with micturition; E78.5 Hyperlipidemia, unspecified; E78.1 Pure hyperglyceridemia; E11.9 Type 2 diabetes mellitus without complications; F17.210 Nicotine dependence, cigarettes, uncomplicated; Z79.899 Other long term (current) drug therapy
CPT/HCPCS: 36415; 71045; 74177; 80053; 80306; 81003; 83690; 84484; 85025; 93005; 96365; J0295; J3490

== ENCOUNTER 2021-02-25 18:33 | Emergency (ER) | payer OTHER ==
[2021-02-25 19:22] LABS: #Eosinphils 0.3 thou/uL (0.0-0.7); #Lymphocytes 2.7 thou/uL (1.20-3.40); #Monocytes 0.8 thou/uL (0.11-0.59); #Neutrophils 5.8 thou/uL (1.40-6.50); %Basophils 0.4 % (0.0-1.0); %Neutrophils 60.7 % (42.0-75.0); Hemoglobin 14.3 g/dL (14.0-18.0); Mean Corpuscular HGB CONC 35.2 g/dL (32.0-36.0); Mean Corpuscular Hemoglobin 32.2 pg (27.0-31.0); Mean Corpuscular Volume 91.6 fL (78.0-98.0); Mean Platelet Volume 7.2 fL (7.4-10.4); Platelet Count 217 thou/uL (130-400); RBC Distribution Width 11.8 % (11.5-14.5); Red Blood Cell (RBC) Count 4.43 mill/uL (4.70-6.10); White Blood Cell (WBC) Count 9.6 thou/uL (4.8-10.8)
[2021-02-25 19:42] LABS: ALT (SGPT) 30 U/L (8-55); AST (SGOT) 27 U/L (5-34); Albumin 4.1 g/dL (3.5-5.0); Alkaline Phosphatase 96 U/L (40-110); Anion Gap 13 mmol/L (10-20); BUN (Urea Nitrogen) 8 mg/dL (8.4-25.7); Bilirubin, Total 0.9 mg/dL (0.2-1.2); CK (CPK) 468 U/L (30-200); Calc. Creatinine Clearance 0 mL/min (70-130); Calcium 9.3 mg/dL (7.8-10.44); Carbon Dioxide 23 mmol/L (22-29); Chloride 95 mmol/L (98-107); Globulin 3.3 g/dL (2.4-3.5); Glucose 144 mg/dL (70-105); Potassium 3.9 mmol/L (3.5-5.1); Protein, Total 7.4 g/dL (6.0-8.3); Sodium 127 mmol/L (136-145)
[2021-02-25 19:43] LABS: Acetaminophen Less than 6.0 mcg/mL (10.0-30.0); Alcohol Less than 10 mg/dL (Less than 10); Salicylate Less than 8.0 mg/dL (15.0-30.0)
[2021-02-25 21:05] LABS: Bacteria/HPF None Seen HPF (None Seen); Bilirubin Negative (Negative); Blood, Urine Negative (Negative); Clarity Clear (Clear); Glucose, Urine (Dipstick) Normal (Negative); Ketone, Urine Negative (Negative); Leukocyte Negative Leu/uL (Negative); Nitrite Negative (Negative); Protein, Urine (Dipstick) Negative (Neg-Trace); RBC/HPF None Seen HPF (0-3); Specific Gravity, Urine 1.005 (1.002-1.036); Squamous Epithelial None Seen HPF (0-3); Urobilinogen Normal mg/dL (Less than 2); WBC/HPF None Seen HPF (0-3); pH, Urine 6.5 (5.0-9.0)
[2021-02-25 21:17] LABS: Amphetamine Detected (NotDetected); Barbiturates Screen Not Detected (NotDetected); Benzodiazepine Screen Not Detected (NotDetected); Cocaine Metabolite Screen Not Detected (NotDetected); Methadone Not Detected (NotDetected); Methamphetamine Detected (NotDetected); Opiate Screen Not Detected (NotDetected); Oxycodone Screen Not Detected (NotDetected); Phencyclidine (PCP) Not Detected (NotDetected); THC/Cannabinoid Screen Not Detected (NotDetected); Tricyclic Screen Not Detected (NotDetected)
== END 2021-02-25 23:27 | disposition home or self-care (01) ==
LOC: ERS 18:33
DX: R44.3 Hallucinations, unspecified (principal); E87.1 Hypo-osmolality and hyponatremia; E11.9 Type 2 diabetes mellitus without complications; E78.5 Hyperlipidemia, unspecified; I10 Essential (primary) hypertension; F17.210 Nicotine dependence, cigarettes, uncomplicated
CPT/HCPCS: 36415; 80053; 80306; 80307; 81001; 82550; 84443; 85025; 99285

== ENCOUNTER 2021-07-26 17:21 | Emergency (ER) | payer OTHER ==
[2021-07-26] MEDS ORDERED: Lorazepam 1 MG TAB ONE (17:56)
[2021-07-26 17:58] LABS: #Basophils 0.1 thou/uL (0.0-0.2); #Eosinphils 0.4 thou/uL (0.0-0.7); #Lymphocytes 2.3 thou/uL (1.20-3.40); #Monocytes 0.9 thou/uL (0.11-0.59); #Neutrophils 4.6 thou/uL (1.40-6.50); %Basophils 1.1 % (0.0-1.0); %Eosinophils 4.6 % (0.0-10.0); %Lymphocytes 28.1 % (21.0-51.0); %Monocytes 10.6 % (0.0-10.0); %Neutrophils 55.6 % (42.0-75.0); Hemoglobin 14.2 g/dL (14.0-18.0); Mean Corpuscular HGB CONC 34.4 g/dL (32.0-36.0); Mean Corpuscular Hemoglobin 32.7 pg (27.0-31.0); Mean Corpuscular Volume 94.9 fL (78.0-98.0); Mean Platelet Volume 7.5 fL (7.4-10.4); Platelet Count 236 thou/uL (130-400); RBC Distribution Width 11.8 % (11.5-14.5); Red Blood Cell (RBC) Count 4.36 mill/uL (4.70-6.10); White Blood Cell (WBC) Count 8.2 thou/uL (4.8-10.8)
[2021-07-26 18:10] LABS: Acetaminophen Less than 10.0 mcg/mL (10.0-30.0); Alcohol Less than 10 mg/dL (Less than 10); Salicylate Less than 8.0 mg/dL (15.0-30.0)
[2021-07-26 18:11] LABS: ALT (SGPT) 21 U/L (8-55); AST (SGOT) 22 U/L (5-34); Albumin 4.4 g/dL (3.5-5.0); Alcohol Less than 10 mg/dL (Less than 10); Alkaline Phosphatase 111 U/L (40-110); Anion Gap 11 mmol/L (10-20); BUN (Urea Nitrogen) 5 mg/dL (8.4-25.7); Calc. Creatinine Clearance 0 mL/min (70-130); Calcium 9.5 mg/dL (7.8-10.44); Carbon Dioxide 27 mmol/L (22-29); Chloride 97 mmol/L (98-107); Glucose 102 mg/dL (70-105); Potassium 4.1 mmol/L (3.5-5.1); Protein, Total 7.4 g/dL (6.0-8.3); Sodium 131 mmol/L (136-145)
[2021-07-26 18:19] LABS: Amphetamine Not Detected (NotDetected); Barbiturates Screen Not Detected (NotDetected); Benzodiazepine Screen Not Detected (NotDetected); Cocaine Metabolite Screen Not Detected (NotDetected); Methadone Not Detected (NotDetected); Methamphetamine Detected (NotDetected); Opiate Screen Not Detected (NotDetected); Oxycodone Screen Not Detected (NotDetected); Phencyclidine (PCP) Not Detected (NotDetected); THC/Cannabinoid Screen Not Detected (NotDetected); Tricyclic Screen Not Detected (NotDetected)
[2021-07-26 18:29] LABS: PTT 28.4 sec (22.9-36.1); Prothrombin Time 13.8 sec (12.0-14.7)
== END 2021-07-27 00:18 | disposition home or self-care (01) ==
LOC: ERS 17:21
DX: F22 Delusional disorders (principal); E11.9 Type 2 diabetes mellitus without complications; I10 Essential (primary) hypertension; F17.210 Nicotine dependence, cigarettes, uncomplicated
CPT/HCPCS: 36415; 80053; 80306; 80307; 84443; 85025; 85610; 85730; 99285